=== PATIENT | female | born 1940 | race Caucasian/White ===

== ENCOUNTER 2019-03-22 12:53 | Inpatient (IN) | payer OTHER ==
[2019-03-22] VITALS (12 sets, daily range): BP systolic 113–169; BP diastolic 44–104
[~2019-03-22] VITALS: Ht 170.2 cm; Wt 88.5 kg
--- NOTE | 2019-03-22 13:35 | NUR ---
PT HAS ALLERGY TO SOME SEIZURE MEDICATIONS BUT IT IS UNKOWN WHICH ONE AT THIS TIME. FAMILY WILL TRY AND GET THE INFORMATION
[2019-03-22 14:01] LABS: HEMATOCRIT 43.2 % (37.0-47.0); HEMOGLOBIN 14.2 gm/dL (12.0-15.0); MCH 33.2 pg (26.0-34.0); MCHC 32.9 g/dL (28.0-37.0); MCV 100.8 fL (80.0-100.0); RBC 4.29 mil/uL (4.20-5.00); RDW 13.7 % (10.5-14.5); WBC 8.1 thou/uL (4.0-11.0)
[2019-03-22 14:09] LABS: ANION GAP 17 mmol/L (7-16); BUN 15 mg/dL (7-18); CALCIUM 9.7 mg/dL (8.5-10.1); CHLORIDE 104 mmol/L (98-107); CO2 22 mmol/L (21-32); CREATININE 0.9 mg/dL (0.6-1.0); GLUCOSE 110 mg/dL (74-106); POTASSIUM 3.4 mmol/L (3.5-5.1); SODIUM 143 mmol/L (136-145)
[2019-03-22 14:18] LABS: TROPONIN-I <0.06 ng/mL (<0.06)
[2019-03-22 14:20] LABS: URINE BILIRUBIN NEGATIVE (Negative); URINE BLOOD NEGATIVE (Negative); URINE CLARITY CLEAR; URINE COLOR YELLOW; URINE GLUCOSE-RANDOM* NEGATIVE (Negative); URINE KETONES NEGATIVE (Negative); URINE LEUKOCYTES-REFLEX NEGATIVE (Negative); URINE NITRITE-REFLEX NEGATIVE (Negative); URINE PROTEIN (DIPSTICK) NEGATIVE (Negative); URINE UROBILINOGEN 0.2 E.U./dl (0.2-1.0)
[2019-03-22 14:27] LABS: AMP/METHAMP Negative (Negative); BARBITURATES Negative (Negative); BENZODIAZEPINES Negative (Negative); COCAINE Negative (Negative); METHADONE Negative (Negative); OPIATES Negative (Negative); PCP Negative (Negative)
[2019-03-22] MEDS ORDERED: NEURONTIN800 MG PO (15:03)
[2019-03-22] MEDS ORDERED: GABAPENTIN800 M1 PO (15:03)
[2019-03-22] MEDS ORDERED: EFFEXOR XR75 MG PO (15:05)
[2019-03-22] MEDS ORDERED: DILANTIN100 MG PO (15:05)
[2019-03-22] MEDS ORDERED: KLONOPIN0.5 MG PO (15:06)
--- NOTE | 2019-03-22 18:49 | NUR ---
PATIENT ADMITTED FROM ED DEPARTMENT AT 1814 ACCOMPANIED BY DAUGHTER. PATIENT ALERT X3, NOT ORIENTED TO YEAR, ON ROOM AIR. DR. BRYANT PRESENT AT BEDSIDE TO COMPLETE CONSULTATION, PLAN OF CARE DISCUSSED WITH BOTH PATIENT AND DAUGHTER, NO SIGNS OF ACUTE DISTRESS NOTED AT THIS TIME. WILL CONTINUE TO MONITOR.
[2019-03-23] VITALS (12 sets, daily range): BP systolic 94–129; BP diastolic 48–62
[2019-03-23 01:05] LABS: GLYCOHEMOGLOBIN (HGB A1C) 5.7 % (4.8-5.6)
--- NOTE | 2019-03-23 01:07 | NUR ---
PT. ADMITTED TO ICU FROM ER, CAME AT 1800. ADMISSION DONE BY THIS RN. STAT MRI COMPLETED, ULTRASOUND COMPLETED. PT. RESTING WELL IN BED AT THIS TIME. SEE ADMISSION DOCUMENTATION. WILL CONTINUE TO MONITOR.
--- NOTE | 2019-03-23 04:44 | NUR ---
NO OVERNIGHT EVENTS. PT. RESTED WELL IN BED OVERNIGHT. NO SIGNS OR SYMPTOMS OF SEIZURE ACTIVITY. ASSESSMENTS AND VITAL SIGNS CHARTED. CONTINUE TO FOLLOW POC. WILL CONTINUE TO MONITOR.
[2019-03-23 04:55] LABS: CHOLESTEROL 201 mg/dL (<200); HDL CHOLESTEROL 68 mg/dL (>40); LDL CHOLESTEROL 113 mg/dL (<100); TRIGLYCERIDE 103 mg/dL (<150); VLDL 21 mg/dL (<40)
[2019-03-23 04:58] LABS: SERUM ASSESSMENT Clear
--- NOTE | 2019-03-23 08:13 | EKG ---
[address] [address] ELECTROCARDIOGRAM REPORT Name: SLADE LANGFORD Room #: 241-P ADM IN M.R.#: [id number] Admission: 03/22/19 Attend Phys: Etienne South MD Discharge: Date of : 36 Report #: [id number] THIS REPORT FOR: //name// 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
--- NOTE | 2019-03-23 12:24 | NUR ---
PATIENT SEEN BY DR. HAMM THIS DATE. PATIENT IS TOO HIGH FUNCTIONING FOR ACUTE REHAB. PLAN FOR PATIENT TO D/C TODAY TO HOME. SPAR MACHINE OPERATOR INFORMED. THANK YOU FOR THIS REFERRAL.
--- NOTE | 2019-03-23 13:05 | 2DMMODE ---
[facility] [address] [place] [address] 2 D/M-MODE ECHOCARDIOGRAM Name: SLADE LANGFORD Room #: 241-P ADM IN M.R.#: [id number] Admission: 03/22/19 Attend Phys: Mookie Frances Discharge: Date of : 36 Report #: [id number] THIS REPORT FOR: //name// APPROVED REPORT Study performed: 03/23/2019 09:11:38 EXAM: Comprehensive 2D, Doppler, and color-flow Echocardiogram Patient Location: Bedside Room #: 241 Status: routine BSA: 2.00 HR: 63 bpm BP: 121/62 mmHg Rhythm: NSR Other Information Study Quality: Adequate Indications Seizures 2D Dimensions IVSd: 10.27 (7-11mm) LVOT Diam: 19.00 (18-24mm) LVDd: 45.37 mm PWd: 10.22 (7-11mm) Ascending Ao: 31.98 (22-36mm) LVDs: 28.74 (25-40mm) Aortic Root: 28.10 mm LV Single Plane 4CH: 54.26 % LV Single Plane 2CH: 54.39 % Biplane EF: 55.2 % Volumes Left Atrial Volume (Systole) Single Plane 4CH: 62.12 mL Single Plane 2CH: 52.30 mL LA ESV Index: 30.00 mL/m2 Aortic Valve AoV Peak Miko.: 1.60 m/s AO Peak Gr.: 10.22 mmHg LVOT Max P.41 mmHg LVOT Max V: 0.92 m/s LIZET Vmax: 1.59 cm2 Mitral Valve E/A Ratio: 1.1 [facility] [address] [place] [address] 2 D/M-MODE ECHOCARDIOGRAM Name: SLADE LANGFORD Room #: 241-P [facility] IN [facility].#: [id number] Admission: 03/22/19 Attend Phys: Mookie Frances Discharge: Date of : 36 Report #: [id number] MV Decel. Time: 239.79 ms MV E Max Miko.: 1.05 m/s MV A Miko.: 0.96 m/s MV PHT: 69.54 ms IVRT: 69.20 ms TDI E/Lateral E': 15.00 E/Medial E': 15.00 Medial E' Miko.: 0.07 m/s Lateral E' Miko.: 0.07 m/s Pulmonary Valve PV Peak Miko.: 0.88 m/s PV Peak Gr.: 3.09 mmHg ID End Vmax: 0.93 m/s Pulmonary Vein P Vein S: 0.36 m/s P Vein A: 0.21 m/s P Vein D: 0.29 m/s P Vein A Dur.: 110.7 msec P Vein S/D Ratio: 1.24 Tricuspid Valve TR Peak Miko.: 2.16 m/s RAP Estimate: 10.00 mmHg TR Peak Gr.: 18.72 mmHg PA Pressure: 29.00 mmHg Left Ventricle The left ventricle is normal size. There is normal LV segmental wall motion. There is normal left ventricular wall thickness. Left ventricular systolic function is normal. The left ventricular ejection fraction is within the normal range. LVEF is 55%. Moderate diastolic dysfunction Right Ventricle The right ventricle is normal size. The right ventricular systolic function is normal. Atria The left atrium size is normal. The right atrium size is normal. Aortic Valve The aortic valve is mildly sclerotic. No aortic regurgitation is present. There is no aortic valvular stenosis. Mitral Valve The mitral valve leaflets are mildly sclerotic. Trace mitral [facility] [address] [place] [address] 2 D/M-MODE ECHOCARDIOGRAM Name: SLADE LANGFORD Room #: 241-P [facility] IN .R.#: [id number] Admission: 03/22/19 Attend Phys: Mookie Frances Discharge: Date of : 36 Report #: [id number] regurgitation. No evidence of mitral valve stenosis. Tricuspid Valve The tricuspid valve is normal in structure. Mild tricuspid regurgitation. Pulmonary artery pressure is 25 mmHg. Pulmonic Valve The pulmonary valve is normal in structure. Mild pulmonic regurgitation. Great Vessels The aortic root is normal in size. The ascending aorta is normal in size. IVC is normal in size and collapses >50% with inspiration. Pericardium There is no pericardial effusion. <Conclusion> Left ventricular systolic function is normal. There is normal LV segmental wall motion. LVEF is 55%. Moderate diastolic dysfunction The aortic valve is mildly sclerotic. No aortic regurgitation or stenosis. The mitral valve leaflets are mildly sclerotic. Trace mitral regurgitation. Mild tricuspid regurgitation. Pulmonary artery pressure of 25 mmHg. There is no pericardial effusion. <ELECTRONICALLY SIGNED> By: Wes Doshi MD, FACC 03/23/19 1305 1305 1305 Wes Doshi MD, FACC /INF
[2019-03-23] MEDS ORDERED: LIPITOR 20 MG T20 M1 PO (14:05)
[2019-03-23] MEDS ORDERED: ASPIR 8181 MG PO (14:05)
[2019-03-23] MEDS ORDERED: DILANTIN100 MG PO (14:05)
[2019-03-23] MEDS ORDERED: ZONISAMIDE 100100 M1 PO (14:05)
[2019-03-23] MEDS ORDERED: GABAPENTIN 100100 MG PO (14:05)
[2019-03-23] MEDS ORDERED: PEPCID20 MG PO (14:05)
[2019-03-23] MEDS ORDERED: REMERON15 MG PO (14:07)
[2019-03-23] MEDS ORDERED: KEPPRA XR500 MG PO (14:09)
[2019-03-23] MEDS ORDERED: CLONAZEPAM 0.50.5 M1 PO (15:09)
[2019-03-23] MEDS ORDERED: KEPPRA 500 MG500 M1 PO (15:09)
--- NOTE | 2019-03-23 16:53 | NUR ---
INITIAL ASSESSMENT: Pt evaluated for d/c planning needs. Reviewed chart and spoke with nurse and pt. Pt is alert and oriented. Pt lives alone in [place] and came to area to spend the holiday with her daughter. Pt states she plans on flying back to [place] tomorrow. Pt said she has no DME and has not had home health in the past. No d/c needs anticipated.
--- NOTE | 2019-03-23 17:15 | NUR ---
Nurse reviewed discharge instructions with family and patient. Physician, nurse and family talked extensively with patient in regards to following recommended medical management regime. No further questions were noted. IV was discontinued without difficulty. Patient was wheeled to vehicle. All scripts the patient expressed she does not have, and per MD order, were called to their pharmacy of choice.
--- NOTE | 2019-03-27 13:29 | HC ---
[facility] [place] [address] CONSULTATION Name: SLADE LANGFORD Room #: 241-P [facility] IN M.R.#: [id number] Admission: 03/22/19 Attend Phys: Etienne South MD Discharge: 03/23/19 Date of : 36 Report #: [id number] THIS REPORT FOR: //name// CC: Etienne South [facility] unknown DATE OF SERVICE: 03/22/2019 HISTORY OF PRESENT ILLNESS: This is an 79-year-old female patient who is admitted with two episodes of seizures. I talked to the Emergency Room physician and I talked to the hospitalist who is admitting this patient. The history is not very clear. The patient started having some altered mental status this morning. Her speech was changed. She was unable to open her eyes. It continued, but subsequently it looks like she had a grand mal seizure. She was on Dilantin. Emergency Room physician checked a Dilantin level and it was therapeutic at 11.2 in spite of that, the patient had two seizures. The other laboratory workup which indicates that she probably had two seizures because her lactic acid was high. The history, which is not clear is regarding her seizure. She apparently had her first seizure 30 years ago. It was a grand mal seizure, but was not very severe. Since then, she had only force grand mal seizure, but she gets Klonopin every 2-3 days because she feels she is going to have a seizure. The symptoms she usually has is different than this and she never had two seizures in a row in a day. The episode she had today was different than before. She has been tried on multiple medications. She has been on Dilantin for a long time. They gave her a trial to taper off the Dilantin and start her on some other medication, but that was unsuccessful. She may be getting some memory problems, but she is still able to function. Rather she flew from [place] by herself and came here to see her daughter. She does follow up with a neurologist at [place]. I do not have any of those records. REVIEW OF SYSTEMS: Positive for some episodes where the patient had a facial droop. She did not have a workup for that. She did have MRIs in the past. Last MRI was about 10 years ago. They told them that she has a spot on her brain. It is not clear what the spot was. According to the daughter they did not follow up that spot. I do not know what that spot was and whether that was really a stroke or something else. CT scan done today looks pretty much unremarkable. The rest of the 14-point review of system was mostly noncontributory. PAST MEDICAL HISTORY: Positive for seizure and it looks like she had seizure, but is not certain if all the episodes she had were really a seizure. The [address] [address] CONSULTATION Name: SLADE LANGFORD Room #: 241-P [facility] IN M.R.#: [id number] Admission: 03/22/19 Attend Phys: Etienne South MD Discharge: 03/23/19 Date of : 36 Report #: [id number] facial droopiness can occur with seizure, but you cannot exclude the possibility of TIA or ischemic events. FAMILY HISTORY: Unremarkable. SOCIAL HISTORY: She does not smoke or drink any alcohol. She takes gabapentin at night. This was started as a postherpetic neuralgia, but now she cannot sleep without it. PHYSICAL EXAMINATION: The patient's examination is limited because she is still pretty sleepy, but she wakes up. When she wakes up, she can follow commands. She was able to tell me it is March, but she was not able to tell me what exact date it is, but she said it is a . She did not know the hospital she is in, but she is from [place]. She was able to name the president. When asked what is 89-7 is, she said 2. Cranial nerve examination 2-12 was attempted because of drowsiness that exam is suboptimal, but does not appear to be showing any focality. It does look like she can move all 4 extremities and she said she had a good sensation on both sides. She did have some blood workup done. Her magnesium was normal. The family thinks that she is losing some memory. Her potassium is slightly low. MCV is trace high, but she denies any use of alcohol. CT scan was okay and her blood pressure is running 138/65, respiration is 17, pulse is 85, temperature is 98.4. LABORATORY DATA: White count is normal in spite of her seizure. IMPRESSION: The patient had two seizures and she had prior symptoms of facial droop, which she had multiple times. The most likely etiology is that all her symptoms were related to seizure. There are some atypical features like she was told that she had a spot on her brain on MRI, which they did not follow up and she had multiple episodes in the past where she had a facial droop. Because of that, it is reasonable to exclude the possibility of any ischemic event in this patient, which always is difficult to exclude in the patient with seizure. The etiology of seizure is not clear and many seizures are idiopathic. She did have a head trauma long time ago, but that was not severe enough to raise her epilepsy risk level. She does take intermittent Klonopin, but she takes that every 2-3 days. The possibility of benzodiazepine withdrawal seizures are there, but I do not think it is high on the list because of her intermittent use, but that may be the contributing factor. She does have insomnia and she has not been sleeping well in the last few days that may have predisposed her. The main question is whether she also had an ischemic event, which triggered the patient seizure at this time, especially because the seizures are more prominent and she never had two seizures in a row. That is not very likely, but cannot be excluded. Because of that, it is reasonable to do an MRI and [place] of the head [place] [address] [place] [address] CONSULTATION Name: SLADE LANGFORD Room #: 241-P [facility] IN ..#: [id number] Admission: 03/22/19 Attend Phys: Etienne South MD Discharge: 03/23/19 Date of : 38 Report #: [id number] exclude that possibility. I have ordered that. I talked to the daughter, she indicated that she was on Dilantin 300 mg p.o. at bedtime. We will put her back on that. She was started on Keppra in the Emergency Room. I will suggest continuing Keppra and treat her with a combination of Dilantin and Keppra rather than monotherapy for the time being because effort to switch her to monotherapy has been unsuccessful in the past. I will get an EEG done to see if there is any active epileptiform activity is going on. If EEG does not show any seizure activity, then the question is whether some of the seizures or pseudoseizure because epileptic seizure and pseudoseizure tend to coexist in the same patient. That can be only addressed by video monitored EEG and we do not have it and we may have to address that as an outpatient. Presently, we will just treat her epileptic seizure and the two seizures she had were clearly epileptic seizure. If MRI does not show any ischemic event, which may have triggered the seizure trauma, which did not show any ischemic event, which can trigger the seizure, then we mainly need to control the seizures in this patient. Dr. Elliott is applications support engineer from tomorrow and he will be following up this patient from tomorrow with you. As far as diet is concerned, once the patient became more responsive, I will suggest doing a bedside swallow and start with a clear liquid diet. For about 24 hours, we will give her clear liquid diet because if she has another seizure and has aspiration that is having her on the clear liquid will be better than a regular diet, but I think she should be able to swallow the pills and I gave her p.o. rather than IV. About 50 minutes of time was spent taking care of this patient and majority of that time was spent counseling and coordinating the patient's daughter. The patient was also discussed with the Emergency Room physician and specialty manufacturing supervisor and the nurses multiple times. <ELECTRONICALLY SIGNED> By: Levi Greene MD 03/27/19 1329 [id number] Levi Greene MD /nt
--- NOTE | 2019-03-27 13:30 | EEG ---
[facility] [place] [address] ELECTROENCEPHALOGRAM Name: SLADE LANGFORD Room #: [facility] IN M.R.#: [id number] Admission: 03/22/19 Attend Phys: Etienne South MD Discharge: 03/23/19 Date of : 38 Report #: [id number] THIS REPORT FOR: //name// CC: Etienne South [facility] unknown DATE OF SERVICE: 03/23/2019 The patient has a history of seizure. EEG was done by placing the electrode by standard 10-20 system of electrode placement. Both referential and sequential montages were used for recording. Background activity in this patient's EEG is about 9 Hz and 30 microvolt. Photic stimulation is unremarkable. The patient did have paroxysmal delta range slowing, but no spike and slow wave activity was noticed. When she goes to sleep that is associated with bilateral slowing and vertex sharp waves. IMPRESSION: This patient's EEG demonstrates episode of paroxysmal slowing, but no nan spike and slow wave activity was noticed. Thank you very much for this referral. <ELECTRONICALLY SIGNED> By: Levi Greene MD 03/27/19 1330 [id number] Levi Greene MD /nt
--- NOTE | 2019-03-31 16:07 | HC ---
[facility] [place] [address] CONSULTATION Name: SLADE LANGFORD Room #: [facility] IN M.R.#: [id number] Admission: 03/22/19 Attend Phys: Etienne South MD Discharge: 03/23/19 Date of : 38 Report #: [id number] THIS REPORT FOR: //name// CC: Etienne South [facility] unknown DATE OF SERVICE: 03/23/2019 HISTORY OF PRESENT ILLNESS: The patient is an 79-year-old female who was admitted with a seizure x 2. Noted to have a Dilantin level of 11.2. There is noted to be an elevated lactic acid. MRI of the brain is negative. She is currently in the ICU and Neurology is evaluating. She notes she had her initial seizure approximately 14 years ago after having a fall and hitting her head. She had another seizure approximately 1 year and 8 months ago. She is currently visiting the [facility] from [place]. PAST MEDICAL HISTORY: Includes the seizures as noted above. There is indication of some postherpetic neuralgia. MEDICATIONS: Please see the full medication listing. FAMILY HISTORY: Unremarkable. MEDICATIONS: Please see the MAR. ALLERGIES: LATEX. SOCIAL HISTORY: She lives in [facility]. She is visiting her daughter. Her daughter lives in a house in [place] with her and child. The daughter does not work outside the home. The patient did not utilize gait aids premorbidly. REVIEW OF SYSTEMS: No current complaints of chest pain, shortness of breath, abdominal discomfort. PHYSICAL EXAMINATION: GENERAL: An 79-year-old white female in no obvious distress. VITAL SIGNS: Last recorded temperature 36.7, pulse 57, respirations 17, and blood pressure 129/58. The patient is alert, pleasant, appears oriented. HEENT: Facies are symmetric. NEUROLOGIC: She has functional range of motion of the upper extremities. Strength is at least grade 4-/5. DTRs are trace to 1. Lower extremities, no focal calf swelling. Tone appeared to be intact. Strength is at least a grade 4 to 4-/5. ASSESSMENT: An 79-year-old white female with the following problem list: 1. [facility] [address] [place] [address] CONSULTATION Name: SLADE LANGFORD Room #: 241-P [facility] IN M.R.#: [id number] Admission: 03/22/19 Attend Phys: Etienne South MD Discharge: 03/23/19 Date of : 38 Report #: [id number] Seizures x 2 with Neurology workup underway as noted. 2. Prior history of seizure disorder. 3. Therapy underway for any functional deficits. PLAN: Agree with PT, OT and speech orders as written. She is continuing on the Intensive Care Unit for right now for close monitoring. We will be glad to follow along with you regarding her rehab therapy needs as indicated. <ELECTRONICALLY SIGNED> By: Maycol Rodriguez MD 03/31/19 1607 [id number] Maycol Rodriguez MD /nt
== END 2019-03-23 17:00 | disposition home or self-care (01) | DRG 100 ==
LOC: ER 12:53 → ICU 17:13 → EROBS 17:13 → ICU 18:00
PROVIDERS: Emergency Medicine; ADMIT Hospitalist
DX: G40.801 Other epilepsy, not intractable, with status epilepticus (principal); G93.41 Metabolic encephalopathy; E87.2 Acidosis; I50.30 Unspecified diastolic (congestive) heart failure; F32.9 Major depressive disorder, single episode, unspecified; I10 Essential (primary) hypertension; E87.6 Hypokalemia; Z82.0 Family history of epilepsy and other diseases of the nervous system; Z91.040 Latex allergy status; Z83.6 Family history of other diseases of the respiratory system; Z79.899 Other long term (current) drug therapy
CPT/HCPCS: 10078

== ENCOUNTER 2019-03-25 10:55 | Inpatient (IN) | payer OTHER ==
[~2019-03-25] VITALS: Ht 172.7 cm; Wt 84.4 kg
[~2019-03-25 10:55] MED LIST: ASPIR 8181 MG PO; CLONAZEPAM 0.50.5 M1 PO; DILANTIN100 MG PO; EFFEXOR XR75 MG PO; GABAPENTIN 100100 MG PO; GABAPENTIN800 M1 PO; KEPPRA 500 MG500 M1 PO; KEPPRA XR500 MG PO; KLONOPIN0.5 MG PO; LIPITOR 20 MG T20 M1 PO; NEURONTIN800 MG PO; PEPCID20 MG PO; REMERON15 MG PO; ZONISAMIDE 100100 M1 PO
[2019-03-25 11:06] VITALS: BP 161/72
[2019-03-25] MEDS ORDERED: EFFEXOR XR75 MG PO (11:22)
[2019-03-25 11:56] LABS: ABSOLUTE NEUTROPHILS 3.6 thou/uL (1.4-8.2); BASOPHILS 1.1 % (0.0-2.0); EOSINOPHILS 1.9 % (0.0-3.0); HEMATOCRIT 42.3 % (37.0-47.0); HEMOGLOBIN 14.4 gm/dL (12.0-15.0); MCH 33.5 pg (26.0-34.0); MCV 98.5 fL (80.0-100.0); MONOCYTES 10.9 % (1.0-8.0); PLATELET COUNT 223 thou/uL (150-400); POLYS 61.1 % (36.0-66.0); RBC 4.29 mil/uL (4.20-5.00); RDW 13.7 % (10.5-14.5); WBC 5.9 thou/uL (4.0-11.0)
[2019-03-25 12:05] LABS: AMP/METHAMP Negative (Negative); BARBITURATES Negative (Negative); BENZODIAZEPINES Negative (Negative); COCAINE Negative (Negative); METHADONE Negative (Negative); OPIATES Negative (Negative); PCP Negative (Negative)
[2019-03-25 12:05] LABS: ANION GAP 8 mmol/L (7-16); BUN 18 mg/dL (7-18); CALCIUM 9.5 mg/dL (8.5-10.1); CHLORIDE 108 mmol/L (98-107); CO2 27 mmol/L (21-32); CREATININE 0.7 mg/dL (0.6-1.0); GLUCOSE 88 mg/dL (74-106); POTASSIUM 3.9 mmol/L (3.5-5.1); SODIUM 143 mmol/L (136-145)
[2019-03-25 12:11] LABS: ALBUMIN 3.8 g/dL (3.4-5.0); SALICYLATE < 2.8 mg/dL (2.8-20.0); SGOT 25 U/L (15-37); SGPT 34 U/L (30-65); TOTAL BILIRUBIN 0.3 mg/dL (<0.1-1.0); TOTAL PROTEIN 7.3 g/dL (6.4-8.2)
[2019-03-25 12:21] LABS: URINE BILIRUBIN NEGATIVE (Negative); URINE BLOOD TRACE (Negative); URINE CLARITY CLEAR; URINE COLOR YELLOW; URINE GLUCOSE-RANDOM* NEGATIVE (Negative); URINE KETONES NEGATIVE (Negative); URINE LEUKOCYTES-REFLEX NEGATIVE (Negative); URINE NITRITE-REFLEX NEGATIVE (Negative); URINE PROTEIN (DIPSTICK) TRACE (Negative); URINE SPECIFIC GRAVITY 1.025 (1.005-1.035); URINE UROBILINOGEN 0.2 E.U./dl (0.2-1.0)
[2019-03-25 14:00] VITALS: BP 131/53
--- NOTE | 2019-03-25 15:37 | NUR ---
WHITE FEMALE ADMITTED FROM ER IN W/C. SHE WAS BROUGHT TO THE HOSPITAL BY HER DAUGHTER. PT. HAS BEEN SELF MEDICATING HER MEDICATIONS. SHE WOULD TAKE A WHOLE DOSE ONE DAY AND CUT IT IN HALF. THE NEXT DAY SHE MAY CUT IT IN 04/25 THS. THEN THE NEXT DAY SHE WOULD TAKE A WHOLE PILL AGAIN OR NONE AT ALL. SHE RECENTLY STOPPED HER EFFEXOR. DURING THE INTERVIEW SHE WAS ASKING ABOUT TENRIISM AND TALKING A LOT OF TENRIISM. SHE ANNOUNCED, "I AM A ANGLICAN". SHE DENIES SI/HI OR AVH DURING THIS INTERVIEW, ALTHOUGH SHE REMARKED, "MY ABOUT A YEAR AND A HALF AGO AND I THOUGHT I SHOULD STAY WITH HIM". SHE DENIED INTENT TO SELF HARM THOUGH. SHE HAS BEEN AGITATED, MOOD CHANGES. SHE WAS RECENTLY IN [facility] FOR SEIZURES AND WAS DISCHARGED ON 03/22/19. SHE IS AMBULATORY. HER CHILDREN (SON IS LISTED FIRST) ARE THE DPOA'S. WILL NEED TO GET A COPY OF THAT. DAUGHTER SIGNED THE CONSENTS. THE PATIENT IS ORIGINALLY FROM [place]. ALL THE CHILDREN LIVE OUT OF STATE EXCEPT THE DAUGHTER THAT BROUGHT HER HERE TODAY, KAYLEE. NO CLOTHING BROUGHT WITH HER. COAT, CELL PHONE, TAKE BY DAUGHTER. DAUGHTER TO BRING BACK SOME CLOTHING. PT. HAS 2 HEARING AIDES IN HER EARS. HER GLASSES WERE BROKEN, TAKEN BY THE DAUGHTER TO HAVE THEM FIXED AND THEN TO BRING THEM BACK WITH HER TOMORROW ALONG WITH SOME CLOTHING. PT. IS CURRENTLY DRESSED IN A HOSPITAL GOWN.
[2019-03-25 19:56] VITALS: BP 129/63
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
--- NOTE | 2019-03-26 01:32 | NUR ---
PATIENT SHOWED NO SUICIDAL IDEATION OR HOMICIDAL IDEATION THIS SHIFT.
[2019-03-26 08:19] VITALS: BP 135/60
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
--- NOTE | 2019-03-26 16:05 | NUR ---
PATIENT HAS BEEN UP, AND OUT ON THE UNIT MOST OF THE SHIFT. SHE INTERACTS WELL WITH STAFF AND PEERS. PATIENT SOCIALIZING WITH EVERYONE. PATIENT IS ALERT, FORGETFUL, AND SOMEWORHT CONFUSED. PATIENT IS EATING MEALS, AND DRINKING FLUID WELL. PATIENT TOOK ALL HER MEDICCATION WHOLE WITHOUT DIFFICULTY. PATIENT DENIES SUICIDAL/HOMICIDAL IDEATION, SHE DENIES DEPRESSION/ANXIETY. " I AM A PEOPLES PERSON, LOVE PEOPLE, YOU DON'T PUT YOUR MOTHER IN THIS KIND OF PLACE". PATIENT'S DAUGHTER (KAYLEE) CALLED, AND ALL PATIENT'S MEDICATION CALLED OUT TO HER PER HER REQUEST. NO SEIZURE ACTIVITY NOTED AT THIS TIME. PATIENT DECLINE FLU SHOT "MY GOT PNEUMONIA SHOT, AND GOT THE WORST PNEUMONIA. AM NOT GETTING ANY FLU SHOT". NO SIGN OF ACUTE DISTRESS NOTED AT THIS TIME. PATIENT SITTING IN DAY ROOM SOCIALIZING WITH PEERS, WILL MONITOR FOR SAFETY.
--- NOTE | 2019-03-26 16:15 | NUR ---
[facility] and Stephanie on the phone with Dr Gilman. Kriss both had concerns about the treatment she was receiveing after speaking with their mother today. SW reported at length about the days activities and attmepted to estbalish some understanding and manage the expectations. SW provided updates from the chart including medications and lab results. Sw reassured them that this was the process and that there would be more inforamtion at the family meeting tomorrow. Both seemed satisfied with this outcome. SW also spent some time speaking wiht this pt as follow up when she wa sin the dinign area. Pt reported that " all off the noise " in her head was now gone.
[2019-03-26 20:00] VITALS: BP 149/93
--- NOTE | 2019-03-27 05:06 | NUR ---
Care assumed of patient at 1915: Patient approached the nurses station during nursing report. Patient started to say that she had gone to sleep and woke up with "2 things" in her head and had to call her daughter. Patient originally denied pain. Appeared calm, cooperative originally. Patient asked to have a seat for 5 minutes to allow for nurse to complete nursing assessment then nurse would be glad to assist her with the phone. Patient started to cry, breath heavily and pace the halls. Patient appeared to be anxious and agitated, hollering. Another nurse spoke with her for the couple minutes needed to complete report. This nurse approached her and stated we could now use the phone. Patient attention seeking and manipulative at start of shift. Patient has a history of this per daughter. Nurse dialed phone so patient could speak with daughter. Daughter then called this nurse to express several concerns. States that patient reported she has a rash on her legs that is hot and swollen, questioning if patient has a DVT, questioning if patient is having an allergic reaction to the medication Trileptal, questioning what her blood pressure was (because patient stated it was high). Reassured daughter that nurse would assess patient fully before providing any medications. Daughter requested a call back after assessment. Notified daughter that the return call could be approximately 1 hour due to completing nursing assessments and passing medications. Once patient was able to calm down, take deep breaths and speak clear thoughts, assessment completed. Patient alert and oriented x3, disoriented on current situation. Denies SI/HI/AH/VH. No paranoia or delusional behaviors present. Denies depression but is obviously anxious. Patient has a reddened rash to top of right lower extremity. Small, red, raised bumps present. Denies itching, reports they burn. Patient applying ice which she reports as helpful. Patient also provided PRN Tylenol per request. Patient has dry skin patches to her left flank. Patient provided lotion that was in her bag to apply to her skin. Skin otherwise appears warm, dry and intact. AUDREY Landa, notified of rash/dry skin present. Order was obtained to hold Trileptal dose 12/5 HS and 12/6 AM until evaluated by MD. Patient took HS medication whole without difficulty. Ate 100% HS snack. Patient reported to bed and was able to fall asleep without difficulty. Patient daughter Stephanie then arrived to the unit to speak with nurse and bring personal belongings for patient. Stephanie expressed concerns about medication management for patient. Reports that family meeting is to be held 03/27/19. Nurse apologized for any concerns or frustrations and to speak with MD regarding concerns at family meeting. Patient up early this AM and requested to take a shower and put on new clothing. Patient provided items to shower and was able to complete this ADL independently without issue.
[2019-03-27 08:49] VITALS: BP 127/69
[2019-03-27 10:27] VITALS: BP 127/69
--- NOTE | 2019-03-27 10:34 | NUR ---
0648 Report received from overnight shift, patient ate breakfast and took medication without incidence. Patient anxious wants to go home, she talked with daughter on phone this morning. Patient calm, cooperative. will continue to monitor for safety.
--- NOTE | 2019-03-27 15:49 | NUR ---
ONIEL met with Dr gilman pt, dght Stephanie and son ELYSIA and dght Juliana were present on the phone. Dr Gilman reported about his recomendations that included [place] with medicaition management. Pt wants to return home to [place]. Family is expected to look into [facility] through this weekend. Dr gilman also reported that this pt has DX of Bipolar mood disorder. Dr gilman also reported about medicaitons and changes and the family was satisfied with this outcome. ONIEL reassured pt 's daughter that we can meet on Saturday and that they would need to come during visiting hours and her minor dght may not come onto the unit. D/C can be expectred Saturday- Sat next week.
[2019-03-27 20:21] VITALS: BP 154/98
--- NOTE | 2019-03-28 03:33 | NUR ---
Care assumed of patient at 1915: Patient seated in dayroom at start of shift. Appeared calm, interacting with other peers. Patient approached nurse rather quickly at the start of shift demanding her night pills so she could "visualize them" and go to bed. Nurse attempted to complete nursing assessment. Patient continued to demand HS medication and appeared anxious and irritable. Patient did report generalized pain and was provided PRN Tylenol with HS medication. Patient denied SI/HI/AH/VH. No s/s of delusional or paranoia behaviors observed. Declined HS snack. Took HS medication without difficulty. No aggression observed. Patient presents with flat affect and variable mood. Patient did speak with her daughter on the phone prior to going to bed. Patient did go to bed rather early and has been resting quietly since.
[2019-03-28 07:55] VITALS: BP 152/82
[2019-03-28 10:40] VITALS: BP 152/82
--- NOTE | 2019-03-28 10:47 | NUR ---
0647 Report received from overnight shift, patient was up in the day room drinking coffee. Patient ate breakfast took medcication without incidence. Patient participates in group calm, cooperative will continue to monitor patient for safety.
[2019-03-28 21:18] VITALS: BP 142/79
--- NOTE | 2019-03-28 21:54 | NUR ---
Care assumed of patient at 1915: Patient seated in dayroom at start of shift. Patient smiling, calm, pleasant and cooperative. Patient alert and oriented x4. Understands that she is here for medication adjustment. Denies SI/HI/AH/VH. No s/s of paranoia or delusional behaviors. Denies pain or discomfort. Patient states that she is worried about another peer that was crying. Attempted to comfort peer and stated that it made her sad. Patient joking appropriately. Speaking about her daughter finding placement for once she leaves the hospital. No agitation or anxiety observed. No intrusive behaviors noted. Patient stated she would like her HS medication as soon as she could have them. Medication provided. Patient pointed out each medication to identify the name and dosage. Patient ate 100% HS snack. Interacting well with other peers. Retired to bed at a reasonable hour and has been resting quietly since.
[2019-03-29 09:35] VITALS: BP 114/71
[2019-03-29 09:47] VITALS: BP 114/71
--- NOTE | 2019-03-29 10:03 | NUR ---
0645 REPORT RECEIVED FROM OVERNIGHT SHIFT, PATIENT CALM COOPERATIVE TALKING WITH OTHER PATIENTS THIS MORNING. PATIENT ATE BREAKFAST AND TOOK MEDICATION WITHOUT INCIDENCE. PATIENT ASKED IF WE COULD EXPLAIN BIPOLAR SYMPTOMS OR GIVE HER A HANDOUT ABOUT BIPOLAR. PATIENT FEELS HER FAMILY IS TAKING HER INDEPENDENCE FROM HER. SHE WANTS TO GO BACK TO LIVE IN HER HOME IN [place]. SHE WAS TOLD BY HER DAUGHTER YESTERDAY THAT KNOW ONE IS GIVING UP ON HER. SHE STATES THAT SHE IS UPSET WITH DR LEONARD FOR SUGGESTING SHE COULD NOT TAKE CARE OF HERSELF. PATIENT VERY PLEASANT AND WILL ASK QUESTIONS IF SHE IS UNSURE ABOUT THINGS. WE WILL CONTINUE TO MONITOR PATIENT FOR SAFETY.
[2019-03-29 20:00] VITALS: BP 133/72
--- NOTE | 2019-03-30 03:55 | NUR ---
ASSUMED CARE OF PATIENT ON 03/29/19 AT APPROXIMATELY 1915, UPON ONE TO ONE SHE WAS PLEASANT APPEARED WITH A BRIGHT AFFECT, INTERACTING APPROPRIATELY WITH PEERS. SHE IS ABLE TO MAKE NEEDS KNOWN A&OX2-3. SHE DENIES SI HI AND HALLUCINATIONS AND DOES NOT APPEAR TO BE RESPONDING TO INTERNAL STIMULI. SHE DENIED MEDICAL CONCERNS WITH NO S/S OF DISTRESS. NURSING WILL MAINTAIN ALL PRECAUTIONS TO ENSURE SAFETY AT ALL TIMES.
--- NOTE | 2019-03-30 08:00 | NUR ---
PT UP AD [facility] THIS AM. NO COMPLAINTS OF PAIN. PT DOES HAVE SLIGHT REDDNESS TO RT LOWER EXT. PT DENIES ANY ITCHING. PT SMILING WITH OTHER RESIDENTS AND STAFF. PT SOCIAL WITH OTHER PTS AND COMPLIANT. NO BEHAVIOR ISSUES FOR THIS PT.
[2019-03-30 08:33] VITALS: BP 135/73
--- NOTE | 2019-03-30 22:34 | NUR ---
Care assumed of patient at 1915: Patient sleeping in bed at start of shift. Patient woke up for nursing assessment. Patient initially calm, pleasant and cooperative. Alert and oriented x4 with occasional confusion observed. Patient knew the date but didn't realize it was later in the day. Patient denies SI/HI/AH/VH. No s/s of paranoia or delusional behaviors. Denies pain or discomfort. Patient smiling, excited to go home tomorrow. Declined HS snack. Nurse approached the room later to provide HS medication. Patient was anxious at that time. Patient seated in the bathroom, face reddened, breathing heavy. When asked what was wrong, patient stated "I need to poop" and requested a "mild laxative". Patient states that she has not pooped in 2 days. Patient also upset because her underwear had scant bleeding present toward the back of her underwear. Patient stated that she has irritated her buttock from trying to push too hard to have a bowel movement. Declines wanting hemorrhoid cream available. Given PRN Milk of Magnesia for constipation. Patient took HS medication without difficulty. Patient also provided a feminine pad and underwear per her request. Patient was able to change underwear and has been resting quietly in bed since.
--- NOTE | 2019-03-31 08:08 | NUR ---
03/30/19. Hank called [facility] and left a VM aboiut the d/c tomorrow. This inlcuded an appt for Dr Reid, find a new PCP and make an appt, adn the information for [facility] and [facility] PHP. HANK offered to help with this, but wanted them to have an opportunity to set up their own appt, as it may conflict with thier schedules, HX with this family has indicated that they make their own appts.
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
[2019-03-31] MEDS ORDERED: LIPITOR40 MG PO (09:27)
[2019-03-31] MEDS ORDERED: GABAPENTIN 100100 MG PO (09:29)
[2019-03-31] MEDS ORDERED: DILANTIN100 MG PO (09:29)
[2019-03-31] MEDS ORDERED: OXCARBAZEPINE300 MG PO (09:30)
[2019-03-31 10:02] VITALS: BP 135/73
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
--- NOTE | 2019-03-31 11:44 | NUR ---
SW provided family with a detailed d/c instructions. This included phone numbers, addresses and appt dates and times for Dr Jeanette Egan and [facility]. Pt's [facility] Stephanie reported that she was satisfied with this d/c instruction.
--- NOTE | 2019-04-01 09:21 | D ---
[facility] [place] [address] DISCHARGE SUMMARY Name: SLADE LANGFORD Room #: 52-[facility] IN M.R.#: [id number] Admission: 03/25/19 Attend Phys: Marcos Gilman DO Discharge: 03/31/19 Date of : 36 Report #: [id number] THIS REPORT FOR: //name// CC: Marcos NAJERA unknown DATE OF SERVICE: 03/31/2019 INPATIENT PSYCHIATRIC DISCHARGE SUMMARY ATTENDING PHYSICIAN: Marcos Gilman DO. CYLINDER CHECKER AT THE TIME OF DISCHARGE: Marcos Barksdale M.D. DISCHARGE DIAGNOSIS: Bipolar disorder. SECONDARY DIAGNOSES: Seizure disorder. The patient elected not to take Keppra and she is on Trileptal. Hyperlipidemia. DISCHARGE MEDICATIONS: Atorvastatin 40 mg p.o. daily for hyperlipidemia, phenytoin 300 mg p.o. at bedtime for seizure disorder, gabapentin 100 mg p.o. at bedtime for postherpetic neuralgia, oxcarbazepine 300 mg p.o. b.i.d. for impulse control and warren, aspirin 81 mg chewable daily for cardioprotection, famotidine 20 mg p.o. daily for GERD. The patient is discharging to her daughter, Stephanie's home in [place]. The patient is planning to remain here for about a 3-month period. LABORATORY DATA: This admission, of note, CBC within normal limits. Chemistries grossly normal. Urine drug screen was negative. Salicylate is less than 2.8, acetaminophen less than 2. Phenytoin level was 11.3 on admission. Serum alcohol level less than 10. Urinalysis showed trace protein, trace blood, otherwise negative. IMAGING: This admission, of note, the patient had been admitted March 22 and and she had a number of studies including head MRI, head CT, brain MRA, which were grossly negative. The patient is on a regular diet, activity level as tolerated. No alcohol, no illicit drugs. homeworker notes for discharge. The patient is given instructions for intake appointment to [facility], has seen Dr. Reid for Neurology followup. REASON FOR ADMISSION: The patient sent to ER upon office visit with Dr. Reid. There was concern for suicidal ideation, but this was misunderstood. The patient was very frustrated, emotional and labile. [facility] [address] [place] [address] DISCHARGE SUMMARY Name: SLADE LANGFORD [facility] M.R.[facility] [id number] Admission: 03/25/19 Attend Phys: Marcos Gilman DO Discharge: 03/31/19 Date of : 38 Report #: [id number] HOSPITAL COURSE: The patient was admitted to Geriatric Psychiatry Unit. Reviewed for her the recent events, her brief admission, her seizure. The patient did not want to take Keppra, elected to utilize oxcarbazepine and this was started at 150 mg p.o. b.i.d., titrated to 300 mg p.o. b.i.d. The patient's mood and affective regulation overall improved. She did maintain some hyperreligiosity making some comments that she was praying for this author and much appreciated this author's voodoo. Obviously, I did not discuss with her my congregational beliefs, but I suspect some of this is longer held features of her personality versus an acute warren. PHYSICAL EXAMINATION: VITAL SIGNS: At time of discharge, temperature 36.7, pulse 69, respirations 19, BP 135/73. MUSCULOSKELETAL: Normal gait and station. MENTAL STATUS EXAMINATION: This is a well-developed, fairly nourished female appearing stated age. Attention intact. Concentration intact. Speech normal rate, volume and tone. Thought process is linear and goal directed. Thought content focused on discharge overall. No psychomotor agitation, no psychomotor retardation. Denied SI or HI. Denied auditory, visual, or tactile hallucinations. Memory not formally tested. Insight limited. Judgment fair. Fund of knowledge at least average. PROGNOSIS: For this patient is fair to guarded and will depend on treatment compliance, family support. It should be noted that the patient's first [facility], [facility], is located in [facility]. <ELECTRONICALLY SIGNED> By: Marcos Gilman DO 04/01/19 0921 [id number] Marcos Gilman DO /nt
== END 2019-03-31 11:30 | disposition home or self-care (01) | DRG 885 ==
LOC: ER 10:55 → SBH 13:32 → EROBS 13:32 → SBH 13:50
PROVIDERS: Physician Assistant; ADMIT Psychiatry & Neurology Psychiatry
DX: F31.9 Bipolar disorder, unspecified (principal); B02.29 Other postherpetic nervous system involvement; R45.851 Suicidal ideations; E78.5 Hyperlipidemia, unspecified; G40.909 Epilepsy, unspecified, not intractable, without status epilepticus; I10 Essential (primary) hypertension; K21.9 Gastro-esophageal reflux disease without esophagitis; Z79.899 Other long term (current) drug therapy; Z79.82 Long term (current) use of aspirin; Z91.040 Latex allergy status
CPT/HCPCS: 10880

== ENCOUNTER 2019-04-12 10:43 | Inpatient (IN) | payer OTHER ==
[~2019-04-12] VITALS: Ht 172.7 cm; Wt 83.9 kg
[~2019-04-12 10:43] MED LIST changes: +LIPITOR40 MG PO; +OXCARBAZEPINE300 MG PO
[2019-04-12 10:45] VITALS: BP 141/89
[2019-04-12 11:15] LABS: URINE BILIRUBIN 1+ (Negative); URINE BLOOD TRACE (Negative); URINE CLARITY CLEAR; URINE COLOR YELLOW; URINE GLUCOSE-RANDOM* NEGATIVE (Negative); URINE KETONES NEGATIVE (Negative); URINE LEUKOCYTES-REFLEX TRACE (Negative); URINE NITRITE-REFLEX NEGATIVE (Negative); URINE PROTEIN (DIPSTICK) 1+ (Negative); URINE SPECIFIC GRAVITY 1.015 (1.005-1.035); URINE UROBILINOGEN 0.2 E.U./dl (0.2-1.0)
[2019-04-12 11:21] LABS: ICTOTEST (BILI CONFIRMATORY) Negative (Negative)
[2019-04-12 11:32] LABS: CRYSTALS None Seen /LPF (None Seen); HYALINE CASTS 0-3 Few /LPF (None Seen); MUCUS >6 Heavy strn/LPF (None Seen); SQUAMOUS 4-10 Moderate /LPF (0-3)
[2019-04-12 11:33] LABS: BACTERIA-REFLEX 1-9 Few /HPF (None Seen); URINE RBC 0-2 Rare /HPF (0-2); URINE WBC-REFLEX 0-5 Rare /HPF (0-5)
[2019-04-12 12:08] LABS: ABSOLUTE NEUTROPHILS 3.3 thou/uL (1.4-8.2); EOSINOPHILS 2.2 % (0.0-3.0); HEMATOCRIT 43.1 % (37.0-47.0); HEMOGLOBIN 14.5 gm/dL (12.0-15.0); LYMPHOCYTES 29.2 % (24.0-44.0); MCH 33.2 pg (26.0-34.0); MCHC 33.7 g/dL (28.0-37.0); MCV 98.5 fL (80.0-100.0); MONOCYTES 8.8 % (1.0-8.0); PLATELET COUNT 264 thou/uL (150-400); POLYS 58.8 % (36.0-66.0); RBC 4.38 mil/uL (4.20-5.00); RDW 13.3 % (10.5-14.5); WBC 5.6 thou/uL (4.0-11.0)
[2019-04-12 12:16] LABS: CALCIUM 9.6 mg/dL (8.5-10.1); CREATININE 0.7 mg/dL (0.6-1.0); POTASSIUM 4.8 mmol/L (3.5-5.1)
--- NOTE | 2019-04-12 12:19 | NUR ---
[facility] [phone].
--- NOTE | 2019-04-12 12:21 | NUR ---
[facility] [phone].
[2019-04-12 12:23] LABS: TOTAL BILIRUBIN 0.4 mg/dL (<0.1-1.0); TOTAL PROTEIN 7.7 g/dL (6.4-8.2)
[2019-04-12 14:30] VITALS: BP 133/71
[2019-04-12 16:15] VITALS: BP 160/75
[2019-04-12 16:16] VITALS: BP 130/82
--- NOTE | 2019-04-12 16:39 | NUR ---
ARRIVES TO FLOOR VIA WC FROM ER AFTER BEING BROUGHT TO ER BY DAUGHTER WITH WHOM SHE LIVES [place], PT IS REPORTED BY DAUGHTER TO BE "EXHIBITING MANIC BEHAVIOR" AND PER ER NOTES THERE WAS AN ARGUMENT LAST PM OVER PT "HAVING A PEOCE OF PUMPKIN PIE" INITALLY DURING ADMIT INTERVIEW RESPONSES ARE ORGANIZED,MOOD CONGRUENT, INTERVIEW PROGRESSESS IS NOTED TO BECOME MORE LABILE,CIRCUMSTANTIAL IN SPEECH WITH PRESSURED SPEECH,FREQUENT EPISODES OF TEARFULNESS AND FEELINGS OF PERSECUTION BY FAMILY "I DON'T KNOW WHY THEY HATE ME SO-HOW CAN THEY TREAT ME LIKE THIS-I RAISED THEM RIGHT" DOES APPEAR RELIGIUSLY PREOCCUPIED AND QUATE
--- NOTE | 2019-04-12 23:12 | NUR ---
ASSUMED CARE ON 04/12/19 @ 19:15. PT SPOKE WITH DAUGHTER ON THE PHONE. STATED THAT SHE GETS HER (HS) MEDS @ 20:30, REORIENTED TO THE TIME FRAME OF MEDICATIONS. AGITATED BY HER BED ALARM AND AMBULATING THE BRIDGES TO THE NURSES DESK COMPLAINING ABOUT THE BED ALARM. REORIENTED TO FUNCTION OF THE ALARM THAT STAYING IN BED WILL KEEP IT FROM RINGING. IN BED WITH BED IN LOW POSITION.
[2019-04-12 23:27] VITALS: BP 130/82
--- NOTE | 2019-04-13 05:44 | NUR ---
slept 7.8 hours
[2019-04-13 07:54] VITALS: BP 136/70
--- NOTE | 2019-04-13 11:51 | NUR ---
Received awake on bed. Due medications given as prescribed, able to swallow meds w/o difficulty. A+O, anxious, restless- frequently looking for her things. On room air. Vital signs stable. Continent, able to go to the bathroom. Assisted in ADLs. Pt requested for spiritual care consult- [place] manager in training place equipment oiler consult for patient. Pt's daughter called re: pt's clothes and belongings, charge nurse spoke to patient's daughter re: her belongings and requests. With bilateral pedal edema- ANA LUISA's hose requested from [place]. With latex allergy- noted, and precautions observed.
--- NOTE | 2019-04-13 12:02 | NUR ---
Pt called daughter this AM looking for her clothes. Daughter stated she brought clothes to her previously and expressed frustration that clothes were not in room. Checked locker and found several sets of clothes. When brought to pt she stated that she didn't want to wear pants. She stated that her always wanted her in skirts so she wanted to wear skirts. She stated that she gave in to wearing pants the last time she was here but that she didn't want to wear them this time. Called daughter to ask that she bring skirts the next time she was here. She stated that she wouldn't give a specific time that she would visit next and expressed frustration that her Mother was trying to ruin her Chery and that she didn't want her mother placated. Daughter requested that pt be told she had to wear pants while she was a patient here. Told daughter that we didn't have a problem with pt. wearing skirts. I told daughter that we could wash skirt that pt. had here if she could wear pants while it was being washed. Daughter stated that her Mother could call her but wouldn't give specific time when she would visit next. Pt. informed of plan and she stated that the skirt she had on "wasn't dirty!" I explained that we were able to wash it on the unit when she was ready for it to be cleaned. Pt. also requested paper and pencil, bible and additional cream at meal times. Provided items and explained process for ordering cream with meals. Pt. verbalizes understanding.
--- NOTE | 2019-04-13 14:26 | NUR ---
ONIEL contacted pt's daughter Stephanie to confirm Saturday's family meeting; they agreed upon an 11am meet time. Stephanie said that pt's DPOA will be present Saturday. She asked that the meeting be held off the unit as pt's son and a daughter do not want to be seen by pt. ONIEL told Stephanie that she cannot make promises that she can make the meeting happen off the unit, but she said she can accomodate pt not seeing her brother and sister. Stephanie had questions on if Medicaid was better in [place] or [place], and ONIEL stated she does not know if there is a difference between the two and the better option is to decide where she wants her mom to live. Stephanie said an application for Medicaid was place for pt in [facility] where she is from at the beginning of March. She also said that pt has been in the area since the beginning of February; pt was supposed to come for a visit but has not returned home since. Stephanie asked SW to have pt screened here for Medicaid and to send her a listing of [place] in her area. She also asked that any documents that need to be signed by DPOA be presented on Saturday when he is present. ONIEL contacted [facility] [employer] to schedule a screening for pt; she received a response they can screen pt tomorrow. ONIEL sent an email to Stephanie with this update. [facility] team will continue to follow pt during her stay on this unit.
[2019-04-13 20:00] VITALS: BP 141/63
[2019-04-14 00:23] VITALS: BP 141/63
--- NOTE | 2019-04-14 00:59 | NUR ---
ASSUMED CARE @ ABOUT 19:30 ON 04/13/19, IN ROOM AND IN DAY ROOM. AWAKE AND ALERT X 3, WITH POOR UNDERSTANDING OF MENTAL HEALTH ISSUES. TOOK MEDS WHOLE WITH WATER. IN BED, BED IN LOW POSITION, WITH 2 SIDERAILS IN THE UP POSITION. WILL CONTINUE TO MONITOR Q 12 MINUTES FOR PATIENT SAFETY.
--- NOTE | 2019-04-14 06:41 | NUR ---
SLEPT 9.4 HOURS OVERNIGHT
--- NOTE | 2019-04-14 10:36 | NUR ---
ONIEL and Dr gibbs called DPOA [phone] and requested thet they consider placement in [place] since the medicaid application is there already. ELYSIA reported that he is flying his personal aircraft to [facility] on Saturday to assist with placement here. It was also reported that he would be out of the country but agreed to consider placement in [place] by Apr 27 if none was found here.
[2019-04-14 11:11] VITALS: BP 100/56
--- NOTE | 2019-04-14 12:01 | NUR ---
ASSUMED CARE AT 0700 THIS MORNING. PT. HAS BEEN ON THE UNIT INTERACTING WITH SEVERAL OTHER PEERS. SHE IS HYPERRELIGIOUS TODAY. SHE STATED SHE BELIEVES SHE IS HERE BECAUSE HER DAUGHTER WANTS HER TO CHANGE AND SHE IS UNABLE TO DO THAT BUT IS WILLING TO TRY. I TALKED TO THE PT. ABOUT NOT HELPING OTHERS, AND ALLOWING STAFF TO ASSIST THE OTHER PATIENTS, AND NEEDS TO CARE FOR HERSELF. SHE STATED SHE DOES NOT KNOW HOW TO DO THAT BUT IS WILLING TO TRY. SHE SAT AT THE TABLE WRITING J C Lads CARDS AND MESSAGES TO STAFF THIS MORNING. SHE WAS COMPLIANT WITH TAKING HER MEDICATIONS, ATTENDING GROUPS AND HAVING MEALS ON THE UNIT. WILLIE BRITO AND LAKIA.
--- NOTE | 2019-04-14 12:01 | NUR ---
ONIEL returned a VM from and he had concerns that his mom knew he was coming into [facility] on Saturday. They as a fmaily want to keep it secret fom her. ONIEL reported that there will be an effort made to keep this inormation private but explained the amount of staff involved. He seemed to understand
[2019-04-14 16:49] VITALS: BP 140/75
[2019-04-14 19:34] VITALS: BP 159/78
[2019-04-15 00:58] VITALS: BP 159/78
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
[2019-04-15 09:05] VITALS: BP 132/78
--- NOTE | 2019-04-15 09:48 | H ---
[facility] [place] [address] HISTORY AND PHYSICAL Name: SLADE LANGFORD Room #: 518A-A ADM IN ..#: [id number] Admission: 04/12/19 Attend Phys: Marcos Gilman DO Discharge: Date of : 38 Report #: [id number] THIS REPORT FOR: //name// CC: Marcos Gilman FAM unknown DATE OF SERVICE: 04/12/2019 INPATIENT PSYCHIATRIC EVALUATION The patient was seen both in the Emergency Room and on the [facility] Unit. Collateral was obtained from her daughter, Stephanie, who was seen in consultation room with a first DPOA, Rachell, and other daughter on the phone. REASON FOR ADMISSION: Concern for ongoing warren. HISTORY OF PRESENT ILLNESS: This is an 79-year-old female who presented to the Emergency Room for psychiatric evaluation. The patient was discharged from [facility] Unit 2 weeks ago. The daughter is having difficulty managing the patient. She reports her being ongoing emotionally labile, for example, last night she came downstairs, ____ on the couch with a stiff body, almost knocked over, she was screaming like a demon, does not want to change, the patient appeared to be "a totally different person." Family did not feel safe for the patient at home. She had episodes of depressed mood and flat affect yesterday as well and had similar symptoms this morning. She intermittently made statements about if she were to kill herself. The patient is recently from [place]. She desires at times to go back home there and she was in the last year. She has failed to manage medications on her own history of self-dose prescribing. She was admitted here in early March, where she was seen by Dr. Reid and Dr. Greene for seizure and when she tried to follow up in primary care, she was emotionally labile and was sent for her first psychiatric admission at that point. Date of her last psychiatric admission was 03/25. The patient stated in the ER, she wants to be taken off all medications and states "I feel great," reports sleeping well. The patient says "I trust in the Lord" and she is unsure why she is here and has prayed to change her behavior. PAST MEDICAL HISTORY: Includes seizure, varicose veins, shingles. PSYCHIATRIC HISTORY: Bipolar disorder. HOME MEDICATIONS: Atorvastatin, phenytoin, oxcarbazepine, aspirin, famotidine. SOCIAL HISTORY: Denied tobacco, alcohol or recreational drug use. REVIEW OF SYSTEMS: From the ER: [address] [address] HISTORY AND PHYSICAL Name: SLADE LANGFORD Room #: [facility] ADM IN M.R.#: [id number] Admission: 04/12/19 Attend Phys: Marcos Gilman DO Discharge: Date of : 38 Report #: [id number] CONSTITUTIONAL: Denies fever, chills, malaise, unexplained weight change. EYES: Denies eye pain, visual change or discharge. HENT: Denies hearing changes, ear drainage, ear infections, ear pain, neck pain or neck stiffness. RESPIRATORY: Denies cough, shortness of breath, hemoptysis or respiratory distress. CARDIOVASCULAR: Denies chest pain, chest pain with exertion or edema. GASTROINTESTINAL: Denies abdominal pain, nausea, vomiting or diarrhea. GENITOURINARY: Denies burning, frequency or dysuria. MUSCULOSKELETAL: Denies back pain, joint pain, muscle weakness or myalgias. SKIN: Denies rash. NEUROLOGIC: Denies weakness, headache or loss of consciousness. PSYCHIATRIC: Denied SI or HI. VITAL SIGNS: In the ER, BP 141/89, O2 sat 96%, temperature 36.7, pulse 99, respirations 20. The patient weighs 86.18 kilos. LABORATORY DATA: From the ER today, sodium 137, potassium 4.8, chloride 102, bicarbonate 30, anion gap 5, BUN 14, creatinine 0.7, estimated GFR 80, glucose 109, calcium 9.6, total bilirubin 0.4, AST 26, ALT 38, alkaline phosphatase 105. Total protein 7.7%. Albumin 4.0. Hematology: White count 5.6, H and H 14.5 and 43.1, platelet count 264. Absolute neutrophil count 3.3. Urinalysis showed trace blood, trace rbc's, 4-10 squamous cells; 1-9 bacteria, greater than 6, which means heavy mucus. PHYSICAL EXAMINATION: Well-dressed/ well groomed. Normal gait and station. MENTAL STATUS EXAMINATION: Attention fair. Concentration fair. Speech loud, normal rate. Thought process is linear and goal directed. Thought content focused on variable subjects, at times making hyper-muslim comments even to this author such as "I pray for you israelites." Mood and affect elevated congruent. Some psychomotor agitation, no psychomotor retardation. Denied SI or HI. Some hopelessness, some helplessness. Memory not formally tested. Insight limited. Judgment impaired. Fund of knowledge below average. FORMULATION: An 79-year-old female admitted to the [facility] Unit after a failed diversion plan. 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 PLAN: Continue phenytoin at bedtime, gabapentin at bedtime. We will begin taper off oxcarbazepine with poor efficacy. Continue aspirin. We will defer famotidine to the Hospitalist Service. [facility] [place] [address] [place] [address] HISTORY AND PHYSICAL Name: SLADE LANGFORD Room #: 518A-A ADM IN M.R.#: [id number] Admission: 04/12/19 Attend Phys: Marcos Gilman DO Discharge: Date of : 38 Report #: [id number] ESTIMATED LENGTH OF STAY: 7-10 days. Of note, about 30 minutes were spent on in person telephone conference with her family. The need for placement and need for DPOA to make decisions was reviewed, great aponte 60 minutes total. STRENGTHS: She has some family support. WEAKNESSES: Advanced age, warren. <ELECTRONICALLY SIGNED> By: Marcos Gilman DO 04/15/19 0948 [id number] Marcos Gilman DO /nt
--- NOTE | 2019-04-15 11:39 | NUR ---
ONIEL called GEORGE [phone] and [place] VM in the [place] to report that this pt was returning tomorrrow.
--- NOTE | 2019-04-15 11:44 | NUR ---
DESCRIBES MOOD "SAD" TODAY "I NEVER THOUGHT I WOULD END UP HERE ON " MOOD EXPANSIVE/MILD LABILITY ONE MINUTE TEARFUL OVER CURRENT CIRCUMSTANCES-WITHIN 2-3 MINUTES SMILING BROADLY STATING "I AM FINDING [facility] IN [place]"DENIES SI/SH/HI-CONVERSATION CIRCUMSTANTIAL AT TIMES-DID COMPLETE SHOWER AND SELF CARES-STATING FEELS "A LOT BETTER" AFTER THIS. GAIT STEADY WITHOUT ASSISISTVE DEVICES. DENIES C/O PAIN/DISCOMFORT. GOOD APPETITE.
[2019-04-15 20:21] VITALS: BP 122/53
--- NOTE | 2019-04-16 01:38 | NUR ---
ASSUMED CARE ON 04/15 @ APROXIMATELY 19:15, IN ROOM, ORGANIZING CLOTHES, PLEASANT AFFECT, A&OX3. ASLEEP WHEN STAFF ENTERED ROOM TO CONDUCT ASSESSMENT AND PROVIDE HS MEDS. AWAKENED TO VOICE, DEMONDTRATED A PLEASANT AFFECT AND COOPERATED WITH ASSESSMENT AND TOOK MEDS WHOLE WITH WATER. RETURNED TO SLEEP AND CONTINUE TO SLEEP SOUNDLY AT THIS WRITING. BED IN LOW POSITION, WILL CONTINUE TO MONITOR Q 12 MINUTES FOR PATIENT SAFETY.
[2019-04-16 01:55] VITALS: BP 122/53
--- NOTE | 2019-04-16 05:58 | NUR ---
SLEPT 8 HOURS
[2019-04-16 09:04] VITALS: BP 142/80
--- NOTE | 2019-04-16 11:49 | NUR ---
ASSUMED CARE AT 0700 THIS MORNING. PT. PLEASANT AND COOPERATIVE WITH STAFF/PEERS. SHE SAT AT THE TABLE TALKING WITH A FEMALE PEER. TOOK HER MEDICATIONS WITHOUT PROBLEMS NOTED. ATE BREAKFAST ON THE UNIT, TWO GRANDDAUGHTERS VISITED THIS MORNING. NO AGITATION OR MANIC S/S NOTED THIS MORNING.
--- NOTE | 2019-04-16 15:20 | NUR ---
ONIEL received information from medical staff that pt is reporting her DPOA KD and his will not be present tomorrow for family meeting. SW contacted who said that he will be in attendance and that "you can't believe anything she says." He also said he moved the meeting back to 12pm. ONIEL received a call from Stephanie because ONIEL had contacted her first. She also confirmed KD would be in attendance. Then she said that her mom found out he was coming from the doctor. ONIEL provided supportive listening as Stephanie spoke of her frustrations concerning the psych doctor. She also said that it is not the plan for her to go back to [place]. ONIEL pulled up pt's [facility] Medicaid application and said that they have received it and it says she is eligible, which could mean approval. ONIEL sent an email the [employer] asking if that is what being eligible meant with [place] Medicaid. Stephanie mentioned they found a [facility] called [facility] off [address] that pt can afford. However, she would like to go through with Medicaid negar. ONIEL explained if it is already approved in [place] that may not be necessary. She also said that her brother KD may change his mind on plans and may not be in agreement with pt going [facility]. She said it was SW job to make him understand. ONIEL responded that she can mediate situations and provide supportive listening, but that she cannot make choices or help pursuade anyone to do anything; SW is simply a resource to help with discharge planning. Stephanie said she doesn't know what the meeting is for. ONIEL responded to get everyone on the same page on the next steps for her mom. Stephanie asked ONIEL if they had found a way to not notify pt that they are there. ONIEL explained that she will try to secure another location for meeting, but quite possibly she will have to escort the family in and out for the meeting. Since the meeting is at noon pt should be eating lunch at the time. Stephanie said ok. ONIEL provided an update to the psych doctor and her director of this conversation. SW team will continue to follow pt during her stay.
--- NOTE | 2019-04-16 16:08 | NUR ---
ONIEL called Stephanie and moved the family meeting tomorrow to 1230 as there is a family meeting scheduled right before. SW team will continue to follow pt during her stay.
[2019-04-16 20:34] VITALS: BP 149/89
[2019-04-16 22:34] VITALS: BP 149/89
--- NOTE | 2019-04-17 03:03 | NUR ---
PT IN ROOM READING AT [facility]. CLAIMS TO BE FEELING BETTER. SAYS NAOMI THINKS THE MEDICATION SHE IS TAKING IS WORKING. TOOK HS MEDS PRESCRIBED. REMAINED IN ROOM THE REST OF THE EVENING, AND HAS SLEPT WELL THROUGH THE NIGHT TO THIS POINT.
[2019-04-17 08:31] VITALS: BP 133/69
[2019-04-17 08:49] VITALS: BP 133/69
--- NOTE | 2019-04-17 12:54 | NUR ---
ASSUMED CARE AT 0700 THIS MORNING. PT. AWAKE, ALERT. SHE CAME ONTO THE UNIT FOR MEALS, TOOK HER MEDICATION WITHOUT PROBLEMS NOTED. SHE CONTINUES TO VERBALIZE BEING UPSET THAT HER SON CANNOT COME HERE FOR A FAMILY MEETING, THAT HE CAN GO ON TRIPS WITH HIS FAMILY, BUT NOT COME HERE FOR A FAMILY MEETING. SHE WAS NOTED TO BE IN HER ROOM SOBBING AT LUNCH TIME. SHE STATED SHE WAS TOO UPSET TO EAT. THIS RN LISTENED TO HER VENT. INFORMED PT. TO TRY TO STOP CRYING SO WHEN SHE DOES TALK TO THE DR. SHE CAN SPEAK CLEARLY. SHE DID THIS. SHE CAME ONTO THE UNIT TO EAT LUNCH.
--- NOTE | 2019-04-17 13:01 | NUR ---
PT. IN HER ROOM AT LUNCH TIME. SHE WAS SOBBING, C/O HER SON CANNOT COME TO BE WITH HER FOR A FAMILY MEETING BUT CAN GO ON VACATION. SHE WAS ALLOWED TO VENT FOR A WHILE. SHE WAS ASKED TO TRY TO GET IT TOGETHER SO WHEN SHE DOES TALK TO THE DR. SHE COULD BE CLEARLY UNDERSTOOD. SHE LATER (ABOUT 20 MIN LATER) WAS NOTED TO BE ON THE UNIT, EATING LUNCH. NO CRYING NOTED AT THAT TIME.
--- NOTE | 2019-04-17 14:50 | NUR ---
ONIEL attended a family meeting with pt's children including ELYSIA (son and DPOA) and Stephanie. ELYSIA said he wants to be informed of any medication changes before they are made. He also said he wants to be the main point of contact; he is okay with Stephanie helping with placement. ELYSIA will be out of the country from today until Apr.27; the psych doctor says he believes pt will be on the unit until then due to cognitive testing and the need to monitor her moods with medication changes. 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 Stephanie wasnt in agreement with that, but ELYSIA says that is okay. Stephanie is concerned that the medicine will take away all her yazidism views. Respite care was also discussed for the interim of transferring [place] Medicaid to [place]. Stephanie likes [facility]. She also said they have ASL and memory care. SW suggested that placement for respite if she also thinks she would like her mother to live there. Stephanie also said she was told they assist with the Medicaid application process. Stephanie said she will visit that facility and two others today. She will then contact SW with her findings. SW team will continue following pt during her stay on this unit.
--- NOTE | 2019-04-17 15:22 | NUR ---
PT CALM ET COOPERATIVE THIS SHIFT. PT SOCIALIZES WITH STAFF ET PEERS. ATE ALL MEALS ET TOOK MEDICATIONS WITHOUT DIFFICULTY. NEAT IN APPEARANCE ET VERY FASTIDIOUS WITH CLOTHING. NO C/O VOICED THIS SHIFT OTHER THAN HER "SHINGLES ORIENTED" H/A. NO BEHAVIORS NOTED. PT DENIES SI, HI AT PRESENT TIME. WILL CONTINUE TO MONITOR PER PROTOCOL.
[2019-04-17 19:48] VITALS: BP 124/64
[2019-04-17 20:00] VITALS: BP 124/64
--- NOTE | 2019-04-18 01:42 | NUR ---
PATIENT SLEEPING SOUNDLY TONIGHT. DAUGHTER KAYLEE CALLED AND SPOKE WITH PATIENT ABOUT A LITTLE BIT BEFORE 2100. PATIENT HAS BEEN CALM AND PLEASANT TONITE. SHE WENT TO SLEEP AROUND 2000 TONIGHT. NO COMPLAINTS. WILL CONTINUE TO MONITOR.
[2019-04-18 08:19] VITALS: BP 128/66
--- NOTE | 2019-04-18 10:27 | NUR ---
HAS BEEN WITHDRAWN TO ROOM TODAY REFUSING TO ATTEND SCHEDULED GROUPS. STATING "I CAN'T BE AROUND THOSE PEOPLE" DYSPHORIC MOOD-IRRITABLE/ARGUMENTATIVE WITH NURSING STAFF-STATING " THESE COPIES OF MY RIGHTS TELL ME YOU NEED TO GET HEARING AIDE BATTERIES FOR MY HEARING AIDES" DID COME OUT FOR MEALS BUT NO NOTED INTERACTION WITH PEERS-DENIES C/O PAIN. DENIES SI/SH/HI
--- NOTE | 2019-04-18 14:09 | NUR ---
HANK spoke with Monica at [facility] [phone] and she requested the H&P, current TB and meds list faxed today [phone]. HANK faxed this included the pt's most current chest X ray for TB test. Hank also completed the physcian move in orders and had Dr gibbs sign these, this is to be faxed at D/C using the fax cover sheet provided by [facility]. [phone]. A packet was created and left with the chart.
[2019-04-18 19:19] VITALS: BP 106/48
[2019-04-18 21:22] VITALS: BP 106/48
[2019-04-19 08:25] VITALS: BP 109/74
--- NOTE | 2019-04-19 13:07 | NUR ---
VISIBLE IN DAYROOM SO FAR THIS SHIFT-LESS WITHDRAWN-DOES SIT WITH ROOMMATE AT MEALTIMES AND DOES APPEAR TO CONVERSE SPONTANEOUSLY-LAUGHING AND SMILING DURING INTERACTION. DENIES SI/SH/HI. DENIES C/O PAIN-DISCOMFORT. GAIT STEADY WITHOUT ASSISTVE DEVICES. HAS 1-2 PLUS PEDAL EDEMA TO FEET/ANKLES BILATERALLY-STATES "ITS ALWAYS LIKE THAT I WILL ELEVATE THEM"
--- NOTE | 2019-04-19 13:12 | NUR ---
SW sent updates to [place] of OP, made packet and FAX cover sheet.
[2019-04-19 20:10] VITALS: BP 138/62
[2019-04-19 22:16] VITALS: BP 138/62
--- NOTE | 2019-04-20 03:32 | NUR ---
PT IN ROOM READING AT [facility] OF SHIFT. CLAIMS TO BE FEELING MUCH BETTER. TOOK HS MEDS PRESCRIBED AND EXPRESSED HAPPINESS OVER HER PLANNED DC IN THE AM. SLEPT WELL THROUGH THE NIGHT W/O INCIDENT.
--- NOTE | 2019-04-20 07:00 | NUR ---
Assumed care of patient this am. Patient up ad alondra and walks without assistance. Patient in good spirits anticipating discharge. Patient takes medications whole with liquids. Patient calm, content, and pleasant. Patients affect relaxed and happy. Patients assessment reveals clear breath sounds, active bowel sounds, and s1 s2 heard with auscultation. Patient denies pain.
[2019-04-20 07:30] VITALS: BP 150/84
[2019-04-20 07:32] VITALS: BP 150/84
--- NOTE | 2019-04-20 09:18 | NUR ---
SW spoke with admissions at [facility] and they reported they have not accepted this pt yet and will still need the 2 step TB test done. They did not communicate this to SW on the weekend and reportadly left to the family to request this from the hospital. This has been reported to staff. Pt will now d/c sat or TR.
--- NOTE | 2019-04-20 12:35 | NUR ---
ONIEL contacted ELYSIA (pt's DPOA and son) and provided him an update on why pt will not be transported to [facility] today due to needing a skin TB test. KD said that he will work on pursuading the facility to accept the chest xray. The psych doctor advised him not force the issue and that tb skin test is not a big issue. He said ok. The psych doctor also advised him that [facility] has not accepted pt yet. The psych doctor also advised that he did not start an antipsychotic med on pt's med regimine due to the risks versus they benefits of it. KD said ok. ONIEL also asked ELYSIA to talk with his sister Stephanie and advise her that med and sw staff cannot take her calls constantly all day as there are other pts; this morning Stephanie called nursing staff and SW team several times. He said she will talk with Stephanie about this. ONIEL contacted [facility] to receive an update on if anything else besides a TB test was needed for pt. She spoke with Kalyn MELTON) who said that [facility] has not made a decision yet, and should do so sometime today. ONIEL returned Stephanie's call. She stated that [facility] told her that they did not have enough documentation from [facility] SW team and nursing staff, and that they only know that pt has SI. ONIEL informed her that she spoke with Kalyn MELTON) who did not mention anything else was needed, and that they are just waiting on a decision from their regional office. Stephanie asked ONIEL "why won't you just help us?" ONIEL explained that she is doing everything possible but she has not bearing on [facility]'s decision. ONIEL asked Stephanie to allow her to do what is necessary to work with [facility]. Stephanie began to say that ONIEL was being angry with her and argumentatiive. ONIEL stopped her and said she would like to end this phone conversation and that Stephanie can call back later. ONIEL contacted Kalyn with [facility] again who confirmed they had everything they needed from the assessment with pt and are just awaiting a decision from one more person. She said she has been the one communicating with Stephanie so she is unsure of who wouldve told her not enough info was sent. ONIEL team will continue to follow pt during her stay in the hospital.
--- NOTE | 2019-04-20 15:30 | NUR ---
ONIEL received a call from Kalyn with [facility] stating pt's application has been denied and that they can reassess her in 30 days. ONIEL contacted ELYSIA and left a vm asking him for another placement option. SW team will continue to follow pt during her stay.
[2019-04-20 19:35] VITALS: BP 133/62
--- NOTE | 2019-04-20 22:18 | NUR ---
ASSUMED CARE ON 04/20/19 AT 19:15, UP AMBULATING AD ROLAND IN HALLWAYS. COOPERATED WITH ASSESSMENT, TOOK MEDS WHOLE WITH WATER. HRRR, LUNGS CTA, ABD NOROACTIVE X 4 Q. INSISTED THAT BED BE NOT IN LOWEST POSITION, THIS REQUEST WAS PROVIDED. WILL CONTINUE TO MONITOR Q 12 MINUTES FOR PATIENT SAFETY.
[2019-04-21 00:12] VITALS: BP 133/62
--- NOTE | 2019-04-21 06:13 | NUR ---
slept 6.8 hours overnight
[2019-04-21 09:15] VITALS: BP 133/62
--- NOTE | 2019-04-21 10:12 | NUR ---
ONIEL contacted ELYSIA again to discuss [facility] not accepting pt. He said that he was under the impression that documentation was missing and that there was SI documented in her notes. ONIEL explained that the SI is in her H&P. ONIEL read to KD what pt's H&P says, and that it was his sister Stephanie that told ER staff that his mother was experiencing SI. KD responded that he did not know things were that bad between Stephanie and his mother. He said he would like to rethink what to do now with his mom. ONIEL explained that had she known he wanted to move forward with a referral to [facility] she would have contacted [facility] and given some background information on pt that would've helped with their decision process. She also explained that while he may have spoken to Monica who may have given the impression that pt could be accepted, it was Kalyn (CEE) who not only visited with pt but is responsible for the decision making. However, in this case because SI was in her H&P, Kalyn had to send the referral to their regional office. It was the regional office who denied pt. ONIEL explained that her job would have been to get ahead of this process had she known. ELYSIA expressed his understanding. He said he is going to take the time that was originally planned (Apr[place]27 [place] to think about the next steps. He asked that SW send him a copy of the H&P. ONIEL said she will ask if that can be done or if it needs to go through medical records. ONIEL also provided KD education on in home services and the fact that they can request "bubble packs" from the pharmacy for med management. ELYSIA said he found that information to be very helpful. ONIEL provided an update to psych doctor. ONIEL asked if the H&P can be sent. The psych doctor said that since KD is DPOA, it can be sent via fax. ONIEL emailed ELYSIA that she can fax him the H&P and asked for a fax #. ONIEL team will continue to follow pt during her stay on this unit.
--- NOTE | 2019-04-21 11:22 | NUR ---
Nutrition: Assessed for early LOS on [facility] unit. Admit: bipolar, unable to be cared for at home. On a regular diet, with excellent nutrition intake. Eating 100% of all meals in recent days, with 96% meal average per 21 meals over 7 days. Pt was unavailable for interview, lengthy phone call in day area. Did overhear pt stating she passed on breakfast today as she looking forward to bigger lunch and dinner meals. States "Praise the Lord," "lunch is really good because I've had it before." Appetite appears to strong, intact. Weight very stable at 186# on 03/28, 185# on 04/20. No wt loss x 3 weeks. No nutrition interventions indicated at this time. Low nutrition risk.
--- NOTE | 2019-04-21 17:02 | NUR ---
Pt calm et cooperative. Pt ambulates halls without difficulty. Pt denies SI, HI, et psychosis. Pt ate all meals et took medications without difficulty. No behaviors noted on this shift. Will continue to monitor per protocol.
[2019-04-21 19:51] VITALS: BP 125/71
--- NOTE | 2019-04-21 22:42 | NUR ---
ASSUMED CARE ON 04/21/19 @ 19:15, SPENDING TIME IN HER ROOM AND AMBULATING AD ROLAND TO THE DAY ROOM PERIODICALLY. COOPERATED WITH ASSESSMENT, TOOK PILLS WHOLE WITH WATER. SITTING IN A CHAIR IN HER ROOM READING. WILL CONTINUE TO MONITOR Q 12 MINUTES FOR PATIENT SAFETY.
[2019-04-22 05:20] VITALS: BP 125/71
--- NOTE | 2019-04-22 06:00 | NUR ---
SLEPT 8 HOURS
[2019-04-22 08:00] VITALS: BP 139/64
--- NOTE | 2019-04-22 09:32 | NUR ---
ASSUMED CARE AT 0700 THIS MORNING. PT. TOOK MEDICATIONS WITHOUT PROBLEMS. ATE BREAKFAST ON THE UNIT. TB TEST READ AND WAS 0.0 INDERATION, NOW WHEELS NOTED. SHE REMAINS PLEASANT AND COPERATIVE WITH STAFF/PEERS. 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 SHE WAS HAPPY ABOUT THAT.
[2019-04-22 10:02] VITALS: BP 125/71
[2019-04-22 13:14] VITALS: BP 139/64
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
[2019-04-22 19:31] VITALS: BP 121/53
[2019-04-22 22:00] VITALS: BP 121/53
--- NOTE | 2019-04-22 23:56 | NUR ---
PATIENT HAS BEEN IN BED SINCE 1930. SHE IS EASILY AWAKENED FOR ASSESSMENT AND MEDS. PATIENT HAS SLIGHT EDEMA IN BILATERAL FEET. FOB ELEVATED. PATIENT WAS GIVEN YELLOW NONSLIP SOCKS BUT SHE REFUSES TO WEAR THEM AT NIGHT. COMPRESSION ANA LUISA HOSE ARE NOT ON PATIENT TONIGHT. PATIENT HAS BEEN CALM AND COOPERATIVE TONIGHT. SHE TOOK HER MEDS WHOLE. LAST BM 04/21/19. DENIES PAIN. VSS. BED IN LOW POSITION AND BED ALARM ON.
[2019-04-23 08:50] VITALS: BP 139/68
[2019-04-23 09:03] VITALS: BP 139/68
[2019-04-23] MEDS ORDERED: DILANTIN100 MG PO (09:55)
[2019-04-23] MEDS ORDERED: DIVALPROEX SOD500 M1 PO (09:56)
[2019-04-23] MEDS ORDERED: DEPAKOTE ER250 MG PO (09:57)
--- NOTE | 2019-04-23 10:01 | NUR ---
ONIEL D/C note ONIEL spoke with the psych doctor who said pt will be discharging today at 1130 per family request. Psych doctor asked that SW link pt with community mental health services in her area. ONIEL located [facility] website and reviewed it for intake requirements. [facility] does intakes on a walk in basis so ONIEL printed the walk-in instructions including acceptable documentation for identification and proof of residency. This will be included in pt's take home packet with discharge summary. No other needs for SW team to address at this time.
--- NOTE | 2019-04-23 10:16 | NUR ---
Miladis Spencer with [facility] contacted ONIEL and asked for pt's discharge plan. ONIEL provided her an update. She also asked SW to reach out to pt's family and ask them to contact her once pt has discharged at [phone]. ONIEL sent KD an email with this information and also a copy of the intake process for [facility]. No other needs for SW team to address at this time.
[2019-04-23 10:18] VITALS: BP 139/68
--- NOTE | 2019-04-23 11:18 | NUR ---
Pt discharged from unit @ 1115 today. Pt ambulated from unit without difficulty accompanied by daughter Stephanie. All valuables et belongings returned to pt. Discharge summary reviewed et pt verbalized understanding of medications et plan. All required documentation signed after review by nurse et patient. Pt denies SI, HI, et psychosis at time of discharge. Pt advised to follow up with outside psychiatry et therapy at earliest convenience. Discharge medication prescriptions sent with pt. Pt instructed to call unit with any questions or concerns. Pt verbalized understanding et discharged from unit without incident.
--- NOTE | 2019-04-27 09:22 | D ---
[facility] [address] [place] [address] DISCHARGE SUMMARY Name: SLADE LANGFORD Room #: 51-A [facility] M.R.#: [id number] Admission: 04/12/19 Attend Phys: Marcos Gilman DO Discharge: 04/23/19 Date of : 36 Report #: [id number] THIS REPORT FOR: //name// CC: Marcos Gilman [facility] unknown DATE OF SERVICE: 04/23/2019 INPATIENT PSYCHIATRIC DISCHARGE SUMMARY ATTENDING PHYSICIAN: Marcos Gilman DO. IT PROGRAM MANAGER AT THE TIME OF DISCHARGE: Brad Ramos MD. DISCHARGE DIAGNOSIS: Bipolar 1 disorder, most recent episode manic, severe, improved. MEDICAL COMORBIDITIES: Include generalized seizure disorder, hyperlipidemia. DISCHARGE PLAN: Regular diet, activity level as tolerated. The patient will be going to her daughter's Stephanie's home versus community discharge. The son and other sibling sound like they did find an assisted living placement but did not reveal name to me. . Attempts were made to put this patient on [facility]; however, that facility went on to deny the patient. DISCHARGE MEDICATIONS: Dilantin 100 mg p.o. at bedtime for tapering off, 5 more doses, Depakote sodium 1000 mg p.o. at bedtime ER rather a total of 1750 mg p.o. at bedtime ER for mood stabilization, seizure disorder. The patient will need a Depakote level in approximately 3 more days, should be a late afternoon level, prescription was given for this, continue aspirin 81 mg p.o. daily for cardioprotection, famotidine 20 mg p.o. daily for GERD, and atorvastatin 40 mg p.o. daily for hyperlipidemia. LABORATORY DATA: From this admission are as follows: CBC grossly normal. Chemistry is also grossly normal. Serum albumin was 4.0. Toxicology, most recent Depakote level on 04/21/2019 was 50, but was increased from 1250 to ____ a day. Urinalysis showed some abnormalities on 04/12/2019, however that was not the right culture. REASON FOR ADMISSION: Alleged manic behavior, daughter unable to manage her. HOSPITAL COURSE: The patient was admitted to Geriatric Psychiatry Unit. I conferred by Neurology colleague to set up a 2-week taper off and start the patient on Depakote. She was titrated to a blood level of at least 50 with ____ required outpatient measurement. The patient has been in fair spirits. Denied [address] [address] DISCHARGE SUMMARY Name: SLADE LANGFORD Room #: 518A-A [facility]#: [id number] Admission: 04/12/19 Attend Phys: Marcos Gilman DO Discharge: 04/23/19 Date of : 36 Report #: [id number] suicidal or homicidal thoughts. No auditory, visual, or tactile hallucinations. PHYSICAL EXAMINATION: VITAL SIGNS: On the day of discharge, temperature 36.6, pulse 66, respirations 18, BP 139/68. The patient is afebrile. MUSCULOSKELETAL: Normal gait and station. MENTAL STATUS EXAMINATION: This is a well-developed female, overweight certainly not obese on exam. Attention fair. Concentration fair. Speech is normal rate, volume, and tone. Thought process is linear and goal directed. Thought content, with some environment around her. Denied SI or HI. Denied auditory, visual, or tactile hallucinations. Fund of knowledge above average. PROGNOSIS: For this patient is guarded given two recent hospital admissions and the patient will return to placement. Other than this, the family has provided her with jail. <ELECTRONICALLY SIGNED> By: Marcos Gilman DO 04/27/19 0922 [id number] Marcos Gilman DO /nt
== END 2019-04-23 11:15 | disposition home or self-care (01) | DRG 885 ==
LOC: ER 10:43 → SBH 14:40
PROVIDERS: Physician Assistant; ADMIT Psychiatry & Neurology Psychiatry
DX: F31.9 Bipolar disorder, unspecified (principal); R45.851 Suicidal ideations; F03.91 Unspecified dementia, unspecified severity, with behavioral disturbance; E78.5 Hyperlipidemia, unspecified; G40.409 Other generalized epilepsy and epileptic syndromes, not intractable, without status epilepticus; F29 Unspecified psychosis not due to a substance or known physiological condition; Z91.040 Latex allergy status
CPT/HCPCS: 10880

== ENCOUNTER 2019-09-24 18:46 | Inpatient (IN) | payer OTHER ==
[~2019-09-24] VITALS: Ht 170.2 cm; Wt 92.1 kg
[~2019-09-24 18:46] MED LIST changes: +DEPAKOTE ER250 MG PO; +DIVALPROEX SOD500 M1 PO
[2019-09-24 18:49] VITALS: BP 117/55
[2019-09-24 19:13] LABS: URINE BILIRUBIN NEGATIVE (Negative); URINE BLOOD 1+ (Negative); URINE CLARITY CLEAR; URINE COLOR YELLOW; URINE GLUCOSE-RANDOM* NEGATIVE (Negative); URINE KETONES NEGATIVE (Negative); URINE NITRITE-REFLEX NEGATIVE (Negative); URINE PROTEIN (DIPSTICK) NEGATIVE (Negative); URINE UROBILINOGEN 0.2 E.U./dl (0.2-1.0)
[2019-09-24 19:14] LABS: URINE LEUKOCYTES-REFLEX 1+ (Negative)
[2019-09-24 19:15] LABS: HEMOGLOBIN 14.6 gm/dL (12.0-15.0); MCV 99.8 fL (80.0-100.0); PLATELET COUNT 138 thou/uL (150-400); RBC 4.31 mil/uL (4.20-5.00); WBC 5.9 thou/uL (4.0-11.0)
[2019-09-24 19:20] LABS: SQUAMOUS 0-3 Few /LPF (0-3)
[2019-09-24 19:21] LABS: BACTERIA-REFLEX None Seen /HPF (None Seen); CASTS None Seen /LPF (None Seen); CRYSTALS None Seen /LPF (None Seen); URINE RBC 0-2 Rare /HPF (0-2); URINE WBC-REFLEX 0-5 Rare /HPF (0-5)
[2019-09-24 19:25] LABS: AMP/METHAMP Negative (Negative); BARBITURATES Negative (Negative); BENZODIAZEPINES Negative (Negative); COCAINE Negative (Negative); METHADONE Negative (Negative); OPIATES Negative (Negative); PCP Negative (Negative)
[2019-09-24 19:25] LABS: CALCIUM 8.6 mg/dL (8.5-10.1)
[2019-09-24] MEDS ORDERED: DEPAKOTE ER500 M1 PO (19:27)
[2019-09-24] MEDS ORDERED: ABILIFY 5 MG TAB5 MG PO (19:27)
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
[2019-09-24 20:00] LABS: ABSOLUTE NEUTROPHILS 2.4 thou/uL (1.4-8.2); ANISOCYTOSIS 1+
[2019-09-24 20:25] VITALS: BP 117/55
[2019-09-24 21:06] VITALS: BP 156/77
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
[2019-09-25 08:00] VITALS: BP 138/76
[2019-09-25 09:38] LABS: TSH 3.774 uIU/mL (0.358-3.740)
[2019-09-25 11:42] VITALS: BP 138/76
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
--- NOTE | 2019-09-25 15:02 | NUR ---
SW completed the intake assessment and TP.
[2019-09-25 19:36] VITALS: BP 140/85
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
--- NOTE | 2019-09-25 22:50 | NUR ---
RESUMMED CARE FROM DAY SHIFT THIS PM, PATIENT WATCHED TV FOR A SHORT WHILE THEN WENT TO BED. PATIENT WANTED TO WAIT UNTIL THE MORNING FOR HER ANA LUISA HOSE. PATIENTS ABDOMEN SOFT ROUND BOWEL SOUNDS PRESENT LUNGS CLEAR, PATIENT CALM COOPERATIVE. PATIENT DENIES SI/HI/AH/VH AT PRESENT, PATIENT STATES SHE UNDERSTANDS THAT SHE DOES NEED HELP WITH DAILY LIVING. PATIENTS DAUGHTER CALLED TO CHECK ON PATIENT. WILL CONTINUE TO MONITOR PATIENT FOR SAFETY AND BEHAVIORS.
--- NOTE | 2019-09-26 06:05 | NUR ---
620 0000 CARE TRANSFERED OBSERVED PT RESTING WITH EYES CLOSED, ZERO ACUTE DISTRESS NOTED THROUGH ROUNDS. ZERO ACUTE DISTRES NOTED THROUG ROUUNDS. WILL CONTINUE TO MONITOR PER [facility] PROT[facility].
[2019-09-26 07:40] VITALS: BP 131/83
--- NOTE | 2019-09-26 18:26 | NUR ---
Alert and orientated X4. Calm and compliant. Tylenot given for neck pain 6-9, sleeping after administration. Denies SI/HI. Also concerned about leg cramps which come and go over past several months. Breath sounds clear t/o. Reg HR auscultated. Color pink with brisk capillary refill and palpable peripheral pulses. +3 edema in lower extremities. ANA LUISA hose applied. Lasix and KCL given per order. Independent with voiding. Active bowel sounds over soft, rounded abdomen. Regular steady gait. Daughter called with multiple questions, asked to speak with Dr. Gilman. Daughter called a second time at 1830, states she will bring clothes tomorrow. Also with questions about [place] medication.
[2019-09-26 19:00] VITALS: BP 119/68
--- NOTE | 2019-09-26 23:17 | NUR ---
Care assumed of patient at 1915: Patient seated in dayroom at start of shift. Patient approached nurse rather early asking for her pajamas. Pajamas were provided and assessment completed. Patient alert and oriented x4. Calm, pleasant and cooperative. Denies anxiety and depression. Denies SI/HI/AH/VH. No delusional or paranoia behaviors observed. No aggression or agitation observed. Denies pain and discomfort. Patient fell asleep rather early after assessment was completed. Patient woken to take HS medication. Took medication whole without difficulty. Patient declined HS snack. Patient was able to fall back to sleep without difficulty and is resting quietly at this time.
[2019-09-27 07:37] VITALS: BP 143/77
--- NOTE | 2019-09-27 10:09 | NUR ---
Assumed care 0700. Patient up for breakfast tries to look out for other patients. She was alert, oriented x 4, wearing ANA LUISA hose. After group sat in recliner and allowed it to elevate her legs. She is clearly articulate, tends to express her wants during group.
--- NOTE | 2019-09-27 16:34 | NUR ---
Patient had trouble using the phone yet did not want nurse helping her. Nurse tried to help her get her legs elevated after lunch and she declined. After lunch she went to her room for a coule of hours. She returned to the dayroom to sit against the back wall. She wears her ANA LUISA hose. She denied pain, SI/HI/AH/VH. No delusional conversation voiced to this nurse.
--- NOTE | 2019-09-27 16:38 | NUR ---
Sw met with Pt one on one at the Pt's request. Pt presented crying and upset. Pt was upset about a meeting she had with Dr. Tapia. In the meeting Dr. Tapia explained neurocognitive testing and explained assisted living. Pt stated she did not believe she needed surgical assistant certified living. SW attempted to explain to the Pt what surgical assistant certified living was. SW offered emotional support and offered to have siddhartha come talk to the Pt. Pt declined speaking to the siddhartha. Pt reported that she is having issues with her daughter and grandaughter. Pt stated she wanted to resolve the problems. SW encouraged Pt to try to lay down and calm before speaking to her daughter. Pt wanted to pray with SW. SW provided support during Pt's prayer. Pt returned to her room to lay down. Pt had no further questions. Sw team will continue to folow Pt.
[2019-09-27 19:19] VITALS: BP 151/62
--- NOTE | 2019-09-27 22:14 | NUR ---
Care assumed of patient at 1915: Patient laying in bed, talking on the phone, at start of shift. Patient told me that she was speaking with her daughter. Patient did appear distraught and raised her voice while on the phone. Patient was able to end the call independently with no incident. Patient alert and oriented x3, disoriented on current time. Patient stated the date was October 27. Then started to cry. Patient states that is the day because that is the day she lost her first child. When asked about depression, patient rated depression 10/10. Patient states that she had spoken with the doctor today and they told her that she had Alzheimer's "like my mom that " and "it all started when my ". Patient stated that they "did the test at 2pm, which is my worst time". Patient states that she lives in her apartment independently but her daughter "checks in". Patient then stated that her discharge plan is to return to her apartment but her daughter has "everything lined up" so she doesn't have to be alone. Patient frustrated, irritable and speaks in sarcastic tone when speaking about her daughter. She did report that they don't always "see eye to eye". Patient continued to cry, have tremors to upper extremities, blunted affect.
[2019-09-28 06:16] LABS: CALCIUM 8.7 mg/dL (8.5-10.1); CREATININE 0.9 mg/dL (0.6-1.0); POTASSIUM 4.1 mmol/L (3.5-5.1)
[2019-09-28 07:38] VITALS: BP 134/79
--- NOTE | 2019-09-28 08:12 | EKG ---
[facility] [place] [address] ELECTROCARDIOGRAM REPORT Name: SLADE LANGFORD Room #: [facility] ADM IN M.R.#: [id number] Admission: 09/24/19 Attend Phys: Marcos Gilman DO Discharge: Date of : 36 Report #: [id number] THIS REPORT FOR: cc: Sandy Gastelum MD, Nora P. MD Lundgren,Wes An MD [facility] ~ THIS REPORT FOR: //name// [facility] ED Test Date: 2019-09-24 Test Time: 19:13:35 Pat Name: SLADE LANGFORD Department: Room: [facility] Gender: F [employer] Remittance Clerk: jasiel : 1940 Requested By: Gaby Cardona Order Number: [id number] MD: Wes Doshi Measurements Intervals [place] Rate: 69 P: 48 IA: 168 QRS: 22 QRSD: 92 T: 27 QT: 396 QTc: 425 Interpretive Statements Sinus rhythm Normal tracing Compared to ECG 03/22/2019 14:33:20 No significant change was found Electronically Signed On 09-28-2019 8:10:19 CDT by Wes Doshi [email or web address] <ELECTRONICALLY SIGNED> By: Wes Doshi MD, [facility] 09/28/1910 12 12 Wes Doshi MD, [facility] /EPI
--- NOTE | 2019-09-28 15:06 | NUR ---
ONIEL attended a family meeting via phone with Dr. Gimlan and Stephanie. Dr. Gilman gave Stephanie pt's neuropsych report which indicates a mild neurocog. disorder. Stephanie said her choice is to still take pt back to [place] apartment. She said that pt will have some in home care; however, she could not dictate how many hours. Due to this decision, Dr. Gilman decided not to enact pt's DPOA. SW team will continue to follow pt during her stay on this unit.
--- NOTE | 2019-09-28 17:40 | NUR ---
Patient was given similar information that her daughter had given her to lead her life to the fullest as she could. She was encouraged to stay focused on getting exercise daily-TV exercise programs [employer], Yoga, stay involved in social activities as possible, keep mind active with puzzles, learning about subjects new to her, reading, eating healthy foods, seeing a dietitian to learn about healthiest of foods, make daily gratitude list. 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 She has papers in an envelop she is to take to her doctor in the front of her chart. She wears ANA LUISA hose celestino wanted the next size bigger due to ridges on her legs. She was encouraged to elevate her legs a couple of times in her bed or on another chair.Patient took a shower in her room without any difficulty. She denies feeling suicidal today.
--- NOTE | 2019-09-28 19:24 | NUR ---
Care of patient assumed at 191. Patient is sleeping when this nurse arrives on shift. At 1999 patient is awake for HS meds. Patient is compliant with meds and cooperative with assessment. Denies depression, anxiety, and pain. Denies SI/HI. HS, LS, BS all WNL. A/O x 4. Declines snack, stating she doesn't want to leave her room. Requests an extra blanket. When the blanket isn't brought to her immediately, patient comes out into the [place] stopping every staff member she sees to ask for another blanket. Patient is redirected and told that the blanket will be brought to her once this nurse finishes helping another patient. Patient goes to day room and attempts to engaged peers and staff in arguments. At 2315 patient demands to order an alternate breakfast at this very moment. Paper and pencil provided for patient to write down what she would like. Patient is informed that the order will be called to the kitchen by community director in the morning.
[2019-09-28 19:34] VITALS: BP 104/59
[2019-09-29 07:42] VITALS: BP 134/70
[2019-09-29 09:44] VITALS: BP 134/70
[2019-09-29] MEDS ORDERED: ADULT LOW DOSE81 MG PO (10:01)
[2019-09-29] MEDS ORDERED: LASIX 40 MG TAB40 M2 PO (10:02)
[2019-09-29] MEDS ORDERED: POTASSIUM20 PO (10:02)
[2019-09-29 10:06] VITALS: BP 134/70
--- NOTE | 2019-09-29 10:17 | NUR ---
HANK spoke with Stephanie and confirmed the 10:30 am d/c. We dicussed expectations and Sw drafted an agreement about their weekly plans. This inlcuded boundaries and consequences. Hank then spoke with the pt about this and she was happy to have somehting in place and she agreed to it. Pt signed this. Hank then added copies and the Neuro psych consult to her packet. Pt has an appt with Dr Aviles and Stephanie wants to set up the appt with the PCP.
--- NOTE | 2019-09-29 12:18 | NUR ---
0730 Alert and orientated X 4. Concerned with hangnail this AM and items in security. Denies SI/HI. Ambulates with regular, steady gait. Breath sounds clear t/o, bilaterally equal. Reg HR auscultated. Color pink with brisk capillary refill and palpable peripheral pulses. +2-3 edema in lower extremities, improved from 2 days ago. ANA LUISA hose in place. Independent with voiding. States she had a BM yesterday. Active bowel sounds over soft, flat abdomen. 1015 Discharge instructions given, verbalizes understanding. Concerned about her purse and other belongings held by security. Security states they were sent home with daughter Stephanie on 09/25/19. Pt. verbalizing mistrust of daughter and security. 1030 Transported per WC to front entrance where she got into vehicle with daughter. Daughter handed her purse. Seatbelt secured. Daughter with questions about depakote level. Pt. appeared unhappy but stated she was ready for discharge.
--- NOTE | 2019-09-29 13:32 | NUR ---
SW recieved a call from Stephanie and she had questions about the d/c. She sdid not want to speak with her mom's nurse and this worker could not answer the questions, so this message was provided to the nurse senior insight manager international Briana via text an email- thet Stephanie requires a follow up regarding the d/c
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
== END 2019-09-29 10:30 | disposition home or self-care (01) | DRG 885 ==
LOC: ER 18:46 → SBH 20:08 → EROBS 20:08 → SBH 21:09
PROVIDERS: Internal Medicine; Nurse Practitioner; Student in an Organized Health Care Education/Training Program; ADMIT Psychiatry & Neurology Psychiatry; ATTEND Psychiatry & Neurology Psychiatry
DX: F31.12 Bipolar disorder, current episode manic without psychotic features, moderate (principal); F01.50 Vascular dementia, unspecified severity, without behavioral disturbance, psychotic disturbance, mood disturbance, and anxiety; N39.0 Urinary tract infection, site not specified; R45.851 Suicidal ideations; I10 Essential (primary) hypertension; E78.5 Hyperlipidemia, unspecified; K21.9 Gastro-esophageal reflux disease without esophagitis; G40.909 Epilepsy, unspecified, not intractable, without status epilepticus; Z79.82 Long term (current) use of aspirin; Z79.899 Other long term (current) drug therapy; Z91.040 Latex allergy status
CPT/HCPCS: 10880